=== PATIENT | male | born 1960 | race Caucasian/White ===

== ENCOUNTER 2020-02-09 22:23 | Emergency (ER) | payer BC ==
[2020-02-09] MEDS ORDERED: Sodium Chloride 0.9% 1000 ML 1,000 ML IV STA (22:24)
[2020-02-09] MEDS ORDERED: Ativan 2 MG/1 ML VIAL IV ONE (22:24)
[2020-02-09] MEDS ORDERED: Ativan 2 MG/1 ML VIAL ONE (22:28)
[2020-02-09 22:38] LABS: Absolute Neutrophil Ct (ANC) 5.21 (1.4-6.9); BASOPHIL % 0.4 % (0.0-0.4); Basophil (Absolute #) 0.04 (0-0.4); Eosinophil % 2.3 % (0.00-5.0); Eosinophil (Absolute #) 0.25 (0-0.5); Hemoglobin 15.2 gm/dl (12.5-18.0); Lymphocyte (Absolute #) 3.99 (1.0-4.6); Lymphocytes % 36.3 % (24.0-44.0); Mean Cell Volume 98.3 fl (78-100); Mean Corpuscular Hemoglobin 32.5 pg (26-32); Mean Platelet Volume 10.9 fl (7.5-11.0); Monocyte (Absolute #) 1.51 (0.0-1.3); Monocytes % 13.7 % (0.0-12.0); Neutrophil % 47.3 % (36.0-66.0); Platelet Count 167 K/mm3 (150-450); Red Blood Count 4.68 M/mm3 (4.1-5.6); Red Cell Distribution Width 12.4 % (11.5-14.0)
[2020-02-09 22:43] LABS: VBG CARBOXYHEMOGLOBIN 8.5 % T HGB (0.0-6.9); VBG HCO3- 23.4 meq/L (22-28); VBG HEMOGLOBIN 15.4; VBG O2 SATURATION 89.5 (95-100); VBG POTASSIUM 3.8 (3.5-5.1); VBG pH 7.27 (7.32-7.42)
[2020-02-09 22:50] LABS: ALBUMIN 4.4 g/dL (3.5-5.0); ALKALINE PHOSPHATASE 75 U/L (38-126); ANION GAP 17.5 MEQ/L (5-15); BLOOD UREA NITROGEN 17 mg/dL (9-20); CHLORIDE 102 mmol/L (98-107); Calcium 9.2 mg/dL (8.4-10.2); Carbon Dioxide 24 mmol/L (22-30); Creatinine 1 1.06 mg/dL (0.66-1.25); Glucose 101 mg/dL (74-106); Potassium 4.1 mmol/L (3.5-5.1); SGOT/AST 22 U/L (17-59); SGPT/ALT 16 U/L (0-50); SODIUM 140 mmol/L (137-145); Total Protein 7.7 g/dL (6.3-8.2)
[2020-02-09 22:54] LABS: A-aADO2 27; ABG HEMOGLOBIN 15.4; ABG POTASSIUM 3.8 (3.5-5.1); ARTERIAL BLD GAS O2 SATURATION 89.5 % (95-100); ARTERIAL BLOOD GAS FIO2 21 %; ARTERIAL BLOOD GAS PCO2 51 mmHg (35-45); ARTERIAL BLOOD GAS PO2 59 mmHg (75-100); ARTERIAL BLOOD GAS pH 7.27 (7.35-7.45); HCO3- 23.4 (22-28); HGB O2 SAT 81.3 g/dF (94-100); Lactic Acid 7.4 (0.4-2.0); Methhemoglobin 0.8 % (1.4-1.5); paO2 pAO1 0.69
[2020-02-09 22:55] LABS: ABG SITE NA VBG SAMPLE; ALLEN TEST OK? NO; CARBOXYHEMOGLOBIN 8.5 % THgb (0.0-6.9)
[2020-02-09 23:04] LABS: ACETAMINOPHEN < 10 ug/ml (10-30); ETHYL ALCOHOL < 10 mg/dL (0-10); SALICYLATE < 1.0 mg/dL (2-20)
[2020-02-09] MEDS ORDERED: Sodium Chloride 0.9% 1000 ML 1,000 ML ONE (23:05)
[2020-02-09 23:14] LABS: Appearance SLIGHTLY CLOUDY (CLEAR); Bilirubin NEGATIVE (NEGATIVE); Blood MODERATE Ery/ul (0-5); Glucose NEGATIVE (NEGATIVE); Ketones NEGATIVE (NEGATIVE); Leukocyte Esterase NEGATIVE (NEGATIVE); Mucus SLIGHT /HPF (NEGATIVE); Nitrite NEGATIVE (NEGATIVE); Protein,Urine Dip 100 (Negative); RBC 0-2 /HPF (0-2); Specific Gravity 1.018 (1.005-1.025); Urobilinogen 2 mg/dL (0-1)
[2020-02-09 23:17] LABS: Bacteria NONE SEEN /HPF (NEGATIVE)
[2020-02-09 23:28] LABS: Amphetamine,Urine NEGATIVE (NEGATIVE); Barbiturate,Urine NEGATIVE (NEGATIVE); Benzodiazepine,Urine NEGATIVE (NEGATIVE); Cocaine,Urine NEGATIVE (NEGATIVE); Methadone,Urine NEGATIVE (NEGATIVE); Opiate,Urine NEGATIVE (NEGATIVE); PCP,Urine NEGATIVE (NEGATIVE); THC,Urine NEGATIVE (NEGATIVE)
--- NOTE | 2020-02-09 23:50 | ERPHSYRPT ---
- History of Present Illness Time Seen by Provider: 02/09/20 22:50 Source: patient Exam Limitations: clinical condition Patient Subjective Stated Complaint: per ems, [place] hands and knees. they yelled his name and he fell on the floor and had seizure like acitivity. pt was unresponsive to verbal stimuli at that time. Triage Nursing Assessment: pt awake on arrival to er. not oriented or cooperative at this time. speaks occasionally but does not answer questions. respriations nonlabored. wheezing noted bilat. pupils equal and reactive. no weakness noted in upper or lower ext. redness noted to rt forehead- no open area. abrasion to rt shoulder, with some bruising to rt shoulder. pt remains restless in bed Allergies/Adverse Reactions: venom-wasp [wasp venom] Allergy (Verified 03/09/16 06:09) Home Medications: Budesonide/Formoterol Fumarate [Symbicort 160-4.5 Mcg Inhaler] 2 puff IH BID [History] Ipratropium/Albuterol Sulfate [Combivent Inhaler] 2 puff IH QID 03/06/16 [ History] Hx Influenza Vaccination/Date Given: No Hx Pneumococcal Vaccination/Date Given: No Immunizations Up to Date: No Travel Risk - International Travel If Yes where:: [facility] - Coronavirus Screening Has patient experienced Coronavirus symptoms: No - Past Medical History Pertinent Past Medical History: Yes Respiratory History: COPD Other Medical History: pt unable to give hx at this time - Past Surgical History Other Surgical History: pt unable to give history at this time - Social History Smoking Status: Smoker, status unknown Drug Use: none Patient Lives Alone: No - Nursing Vital Signs Nursing Vital Signs: Initial Vital Signs Pulse Rate 97 H 02/09/20 22:35 Respiratory Rate 24 02/09/20 22:35 Blood Pressure 108/75 02/09/20 22:35 O2 Sat by Pulse Oximetry 89 L 02/09/20 22:35 - Physical Exam SpO2: 96 Ordered Tests: Active Orders 24 hr Category Date Time Status Accucheck STAT Care 02/09/20 22:24 Active Backer Up STAT Care 02/09/20 22:25 Active Catheter-Tucker Boyle STAT Care 02/09/20 22:24 Active EKG-ER Only STAT Care 02/09/20 22:24 Active IV Insertion STAT Care 02/09/20 22:24 Active Pulse Oximetry (ED) STAT Care 02/09/20 22:24 Active Seizure Precautions -SCCHED STAT Care 02/09/20 22:24 Active CHEST 1 VIEW (PORTABLE) Stat Exams 02/09/20 22:56 Taken CHEST WITH CONTRAST [CT] Stat Exams 02/09/20 23:22 Ordered HEAD WITHOUT CONTRAST [CT] Stat Exams 02/09/20 22:38 Taken HIP UNI (2V) INCL PEL IF DONE Stat Exams 02/09/20 23:52 Ordered ACETAMINOPHEN Stat Lab 02/09/20 22:48 Completed ARTERIAL BLOOD GASES Stat Lab 02/09/20 22:33 Completed BLOOD CULTURE Stat Lab 02/09/20 22:48 Received CBC W DIFF Stat Lab 02/09/20 22:34 Completed CMP Stat Lab 02/09/20 22:34 Completed CULTURE,URINE Stat Lab 02/09/20 23:06 Received D-DIMER QUANTITATIVE Stat Lab 02/09/20 22:49 Completed ETHYL ALCOHOL Stat Lab 02/09/20 22:48 Completed Lactic Acid Stat Lab 02/09/20 22:33 Completed MAG [MAGNESIUM] Stat Lab 02/09/20 22:38 Completed SALICYLATE Stat Lab 02/09/20 22:48 Completed TROPONIN Q3H Lab 02/09/20 22:35 Completed TROPONIN Q3H Lab 02/10/20 01:30 Ordered TROPONIN Q3H Lab 02/10/20 04:30 Ordered TROPONIN Q3H Lab 02/10/20 07:30 Ordered TROPONIN Q3H Lab 02/10/20 10:30 Ordered TSH, 3RD Generation Stat Lab 02/09/20 23:07 Completed UA W/RFX UR CULTURE Stat Lab 02/09/20 23:06 Completed Urine Triage Profile Stat Lab 02/09/20 23:06 Completed VBG [VENOUS BLOOD GAS] Stat Lab 02/09/20 22:33 Completed Medication Summary Discontinued Medications Generic Name Dose Route Start Last Admin Trade Name Freq PRN Reason Stop Dose Admin Sodium Chloride 1,000 mls @ 999 mls/hr 02/09/20 22:24 02/09/20 23:06 Sodium Chloride 0.9% 1000 Ml IV 02/09/20 23:24 999 mls/hr .Q1H1M STA Administration Sodium Chloride Confirm 02/09/20 23:05 Sodium Chloride 0.9% 1000 Ml Administered 02/09/20 23:06 Dose 1,000 mls @ ud .ROUTE .STK-MED ONE Lorazepam 1 mg 02/09/20 22:24 02/09/20 22:30 Ativan 2 Mg/1 Ml Vial IV 02/09/20 22:25 1 mg STAT ONE Administration Lorazepam Confirm 02/09/20 22:28 Ativan 2 Mg/1 Ml Vial Administered 02/09/20 22:29 Dose 2 mg .ROUTE .STK-MED ONE Lab/Rad Data: Laboratory Result Diagrams 02/09/20 22:34 02/09/20 22:34 Laboratory Results 02/09/20 02/09/20 02/09/20 Range/Units 23:07 23:06 23:06 WBC (4.0-10.5) K/mm3 RBC (4.1-5.6) M/mm3 Hgb (12.5-18.0) gm/dl Hct (42-50) % MCV (78-100) fl MCH (26-32) pg MCHC (32-36) g/dl RDW (11.5-14.0) % Plt Count (150-450) K/mm3 MPV (7.5-11.0) fl Gran % (36.0-66.0) % Eos # (Auto) (0-0.5) Absolute Lymphs (auto) (1.0-4.6) Absolute Monos (auto) (0.0-1.3) Lymphocytes % (24.0-44.0) % Monocytes % (0.0-12.0) % Eosinophils % (0.00-5.0) % Basophils % (0.0-0.4) % Absolute Granulocytes (1.4-6.9) Basophils # (0-0.4) D-Dimer (215-500) ng/mL Puncture Site pCO2 (35-45) mmHg pO2 (75-100) mmHg pO2/FiO2 Ratio % Base Excess (-2.0-2.0) O2 Saturation (94-100) g/dF ABG pH (7.35-7.45) ABG HCO3 (22-28) ABG O2 Sat (Measured) (95-100) % Pelon Test VBG pH (7.32-7.42) VBG pCO2 at Pat Temp (42-55) mm/Hg VBG pO2 at Pat Temp (25-40) mm/Hg VBG HCO3 (22-28) meq/L VBG O2 Sat (Javier) (95-100) VBG Base Excess (-2.0-2.0) VBG Hemoglobin VBG Carboxyhemoglobin (0.0-6.9) % T HGB A-a Gradient a/A Ratio Hemoglobin Carboxyhemoglobin (0.0-6.9) % THgb Methemoglobin (1.4-1.5) % Potassium (3.5-5.1) POC Potassium (3.5-5.1) Temperature C POC O2 Flow Rate % Sodium (137-145) mmol/L Chloride (98-107) mmol/L Carbon Dioxide (22-30) mmol/L Anion Gap (5-15) MEQ/L BUN (9-20) mg/dL Creatinine (0.66-1.25) mg/dL Estimated GFR ML/MIN Glucose (74-106) mg/dL Lactic Acid (0.4-2.0) Calcium (8.4-10.2) mg/dL Magnesium (1.6-2.3) mg/dL Total Bilirubin (0.2-1.3) mg/dL AST (17-59) U/L ALT (0-50) U/L Alkaline Phosphatase (38-126) U/L Troponin I (0.000-0.034) ng/mL Serum Total Protein (6.3-8.2) g/dL Albumin (3.5-5.0) g/dL TSH 3rd Generation 5.880 H (0.47-4.68) mIU/L Urine Color YELLOW (YELLOW) Urine Appearance SLIGHTLY CLOUDY (CLEAR) Urine pH 5.0 (5-6) Ur Specific [place] 1.018 (1.005-1.025) Urine Protein 100 (Negative) Urine Ketones NEGATIVE (NEGATIVE) Urine Blood MODERATE (0-5) Lenny/ul Urine Nitrite NEGATIVE (NEGATIVE) Urine Bilirubin NEGATIVE (NEGATIVE) Urine Urobilinogen 2 (0-1) mg/dL Ur Leukocyte Esterase NEGATIVE (NEGATIVE) Urine WBC (Auto) 3-5 (0-5) /HPF Urine RBC (Auto) 0-2 (0-2) /HPF U Epithel Cells (Auto) NONE (FEW) /HPF Urine Bacteria (Auto) NONE SEEN (NEGATIVE) /HPF Urine Mucus (Auto) SLIGHT (NEGATIVE) /HPF Urine Culture Reflexed ORDERED SEPARATELY (NO) Urine Glucose NEGATIVE (NEGATIVE) mg/dL Salicylates (2-20) mg/dL Urine Opiates Level NEGATIVE (NEGATIVE) Ur Methadone NEGATIVE (NEGATIVE) Acetaminophen (10-30) ug/ml Urine Barbiturates NEGATIVE (NEGATIVE) Ur Phencyclidine (PCP) NEGATIVE (NEGATIVE) Urine Amphetamine NEGATIVE (NEGATIVE) U Benzodiazepine Level NEGATIVE (NEGATIVE) Urine Cocaine NEGATIVE (NEGATIVE) Urine Marijuana (THC) NEGATIVE (NEGATIVE) Ethyl Alcohol (0-10) mg/dL 02/09/20 02/09/20 02/09/20 Range/Units 22:49 22:48 22:38 WBC (4.0-10.5) K/mm3 RBC (4.1-5.6) M/mm3 Hgb (12.5-18.0) gm/dl Hct (42-50) % MCV (78-100) fl MCH (26-32) pg MCHC (32-36) g/dl RDW (11.5-14.0) % Plt Count (150-450) K/mm3 MPV (7.5-11.0) fl Gran % (36.0-66.0) % Eos # (Auto) (0-0.5) Absolute Lymphs (auto) (1.0-4.6) Absolute Monos (auto) (0.0-1.3) Lymphocytes % (24.0-44.0) % Monocytes % (0.0-12.0) % Eosinophils % (0.00-5.0) % Basophils % (0.0-0.4) % Absolute Granulocytes (1.4-6.9) Basophils # (0-0.4) D-Dimer 1023 H* (215-500) ng/mL Puncture Site pCO2 (35-45) mmHg pO2 (75-100) mmHg pO2/FiO2 Ratio % Base Excess (-2.0-2.0) O2 Saturation (94-100) g/dF ABG pH (7.35-7.45) ABG HCO3 (22-28) ABG O2 Sat (Measured) (95-100) % Pelon Test VBG pH (7.32-7.42) VBG pCO2 at Pat Temp (42-55) mm/Hg VBG pO2 at Pat Temp (25-40) mm/Hg VBG HCO3 (22-28) meq/L VBG O2 Sat (Javier) (95-100) VBG Base Excess (-2.0-2.0) VBG Hemoglobin VBG Carboxyhemoglobin (0.0-6.9) % T HGB A-a Gradient a/A Ratio Hemoglobin Carboxyhemoglobin (0.0-6.9) % THgb Methemoglobin (1.4-1.5) % Potassium (3.5-5.1) POC Potassium (3.5-5.1) Temperature C POC O2 Flow Rate % Sodium (137-145) mmol/L Chloride (98-107) mmol/L Carbon Dioxide (22-30) mmol/L Anion Gap (5-15) MEQ/L BUN (9-20) mg/dL Creatinine (0.66-1.25) mg/dL Estimated GFR ML/MIN Glucose (74-106) mg/dL Lactic Acid (0.4-2.0) Calcium (8.4-10.2) mg/dL Magnesium 2.2 (1.6-2.3) mg/dL Total Bilirubin (0.2-1.3) mg/dL AST (17-59) U/L ALT (0-50) U/L Alkaline Phosphatase (38-126) U/L Troponin I (0.000-0.034) ng/mL Serum Total Protein (6.3-8.2) g/dL Albumin (3.5-5.0) g/dL TSH 3rd Generation (0.47-4.68) mIU/L Urine Color (YELLOW) Urine Appearance (CLEAR) Urine pH (5-6) Ur Specific [place] (1.005-1.025) Urine Protein (Negative) Urine Ketones (NEGATIVE) Urine Blood (0-5) Lenny/ul Urine Nitrite (NEGATIVE) Urine Bilirubin (NEGATIVE) Urine Urobilinogen (0-1) mg/dL Ur Leukocyte Esterase (NEGATIVE) Urine WBC (Auto) (0-5) /HPF Urine RBC (Auto) (0-2) /HPF U Epithel Cells (Auto) (FEW) /HPF Urine Bacteria (Auto) (NEGATIVE) /HPF Urine Mucus (Auto) (NEGATIVE) /HPF Urine Culture Reflexed (NO) Urine Glucose (NEGATIVE) mg/dL Salicylates < 1.0 L (2-20) mg/dL Urine Opiates Level (NEGATIVE) Ur Methadone (NEGATIVE) Acetaminophen < 10 L (10-30) ug/ml Urine Barbiturates (NEGATIVE) Ur Phencyclidine (PCP) (NEGATIVE) Urine Amphetamine (NEGATIVE) U Benzodiazepine Level (NEGATIVE) Urine Cocaine (NEGATIVE) Urine Marijuana (THC) (NEGATIVE) Ethyl Alcohol < 10 (0-10) mg/dL 02/09/20 02/09/20 02/09/20 Range/Units 22:35 22:34 22:34 WBC 11.0 H (4.0-10.5) K/mm3 RBC 4.68 (4.1-5.6) M/mm3 Hgb 15.2 (12.5-18.0) gm/dl Hct 46.0 (42-50) % MCV 98.3 (78-100) fl MCH 32.5 H (26-32) pg MCHC 33.0 (32-36) g/dl RDW 12.4 (11.5-14.0) % Plt Count 167 (150-450) K/mm3 MPV 10.9 (7.5-11.0) fl Gran % 47.3 (36.0-66.0) % Eos # (Auto) 0.25 (0-0.5) Absolute Lymphs (auto) 3.99 (1.0-4.6) Absolute Monos (auto) 1.51 H (0.0-1.3) Lymphocytes % 36.3 (24.0-44.0) % Monocytes % 13.7 H (0.0-12.0) % Eosinophils % 2.3 (0.00-5.0) % Basophils % 0.4 (0.0-0.4) % Absolute Granulocytes 5.21 (1.4-6.9) Basophils # 0.04 (0-0.4) D-Dimer (215-500) ng/mL Puncture Site pCO2 (35-45) mmHg pO2 (75-100) mmHg pO2/FiO2 Ratio % Base Excess (-2.0-2.0) O2 Saturation (94-100) g/dF ABG pH (7.35-7.45) ABG HCO3 (22-28) ABG O2 Sat (Measured) (95-100) % Pelon Test VBG pH (7.32-7.42) VBG pCO2 at Pat Temp (42-55) mm/Hg VBG pO2 at Pat Temp (25-40) mm/Hg VBG HCO3 (22-28) meq/L VBG O2 Sat (Javier) (95-100) VBG Base Excess (-2.0-2.0) VBG Hemoglobin VBG Carboxyhemoglobin (0.0-6.9) % T HGB A-a Gradient a/A Ratio Hemoglobin Carboxyhemoglobin (0.0-6.9) % THgb Methemoglobin (1.4-1.5) % Potassium 4.1 (3.5-5.1) POC Potassium (3.5-5.1) Temperature C POC O2 Flow Rate % Sodium 140 (137-145) mmol/L Chloride 102 (98-107) mmol/L Carbon Dioxide 24 (22-30) mmol/L Anion Gap 17.5 H (5-15) MEQ/L BUN 17 (9-20) mg/dL Creatinine 1.06 (0.66-1.25) mg/dL Estimated GFR > 60.0 ML/MIN Glucose 101 (74-106) mg/dL Lactic Acid (0.4-2.0) Calcium 9.2 (8.4-10.2) mg/dL Magnesium (1.6-2.3) mg/dL Total Bilirubin 0.40 (0.2-1.3) mg/dL AST 22 (17-59) U/L ALT 16 (0-50) U/L Alkaline Phosphatase 75 (38-126) U/L Troponin I < 0.012 (0.000-0.034) ng/mL Serum Total Protein 7.7 (6.3-8.2) g/dL Albumin 4.4 (3.5-5.0) g/dL TSH 3rd Generation (0.47-4.68) mIU/L Urine Color (YELLOW) Urine Appearance (CLEAR) Urine pH (5-6) Ur Specific [place] (1.005-1.025) Urine Protein (Negative) Urine Ketones (NEGATIVE) Urine Blood (0-5) Lenny/ul Urine Nitrite (NEGATIVE) Urine Bilirubin (NEGATIVE) Urine Urobilinogen (0-1) mg/dL Ur Leukocyte Esterase (NEGATIVE) Urine WBC (Auto) (0-5) /HPF Urine RBC (Auto) (0-2) /HPF U Epithel Cells (Auto) (FEW) /HPF Urine Bacteria (Auto) (NEGATIVE) /HPF Urine Mucus (Auto) (NEGATIVE) /HPF Urine Culture Reflexed (NO) Urine Glucose (NEGATIVE) mg/dL Salicylates (2-20) mg/dL Urine Opiates Level (NEGATIVE) Ur Methadone (NEGATIVE) Acetaminophen (10-30) ug/ml Urine Barbiturates (NEGATIVE) Ur Phencyclidine (PCP) (NEGATIVE) Urine Amphetamine (NEGATIVE) U Benzodiazepine Level (NEGATIVE) Urine Cocaine (NEGATIVE) Urine Marijuana (THC) (NEGATIVE) Ethyl Alcohol (0-10) mg/dL 02/09/20 02/09/20 Range/Units 22:33 22:33 WBC (4.0-10.5) K/mm3 RBC (4.1-5.6) M/mm3 Hgb (12.5-18.0) gm/dl Hct (42-50) % MCV (78-100) fl MCH (26-32) pg MCHC (32-36) g/dl RDW (11.5-14.0) % Plt Count (150-450) K/mm3 MPV (7.5-11.0) fl Gran % (36.0-66.0) % Eos # (Auto) (0-0.5) Absolute Lymphs (auto) (1.0-4.6) Absolute Monos (auto) (0.0-1.3) Lymphocytes % (24.0-44.0) % Monocytes % (0.0-12.0) % Eosinophils % (0.00-5.0) % Basophils % (0.0-0.4) % Absolute Granulocytes (1.4-6.9) Basophils # (0-0.4) D-Dimer (215-500) ng/mL Puncture Site NA VBG SAMPLE pCO2 51 H (35-45) mmHg pO2 59 L (75-100) mmHg pO2/FiO2 Ratio 21.0 % Base Excess -4.0 L (-2.0-2.0) O2 Saturation 81.3 L (94-100) g/dF ABG pH 7.27 L (7.35-7.45) ABG HCO3 23.4 (22-28) ABG O2 Sat (Measured) 89.5 L (95-100) % Pelon Test NO VBG pH 7.27 L (7.32-7.42) VBG pCO2 at Pat Temp 51 (42-55) mm/Hg VBG pO2 at Pat Temp 59 H (25-40) mm/Hg VBG HCO3 23.4 (22-28) meq/L VBG O2 Sat (Javier) 89.5 L (95-100) VBG Base Excess -4.0 L (-2.0-2.0) VBG Hemoglobin 15.4 VBG Carboxyhemoglobin 8.5 H* (0.0-6.9) % T HGB A-a Gradient 27 a/A Ratio 0.69 Hemoglobin 15.4 Carboxyhemoglobin 8.5 H* (0.0-6.9) % THgb Methemoglobin 0.8 L (1.4-1.5) % Potassium 3.8 (3.5-5.1) POC Potassium 3.8 (3.5-5.1) Temperature 37.0 C POC O2 Flow Rate 21 % Sodium (137-145) mmol/L Chloride (98-107) mmol/L Carbon Dioxide (22-30) mmol/L Anion Gap (5-15) MEQ/L BUN (9-20) mg/dL Creatinine (0.66-1.25) mg/dL Estimated GFR ML/MIN Glucose (74-106) mg/dL Lactic Acid 7.4 H (0.4-2.0) Calcium (8.4-10.2) mg/dL Magnesium (1.6-2.3) mg/dL Total Bilirubin (0.2-1.3) mg/dL AST (17-59) U/L ALT (0-50) U/L Alkaline Phosphatase (38-126) U/L Troponin I (0.000-0.034) ng/mL Serum Total Protein (6.3-8.2) g/dL Albumin (3.5-5.0) g/dL TSH 3rd Generation (0.47-4.68) mIU/L Urine Color (YELLOW) Urine Appearance (CLEAR) Urine pH (5-6) Ur Specific [place] (1.005-1.025) Urine Protein (Negative) Urine Ketones (NEGATIVE) Urine Blood (0-5) Lenny/ul Urine Nitrite (NEGATIVE) Urine Bilirubin (NEGATIVE) Urine Urobilinogen (0-1) mg/dL Ur Leukocyte Esterase (NEGATIVE) Urine WBC (Auto) (0-5) /HPF Urine RBC (Auto) (0-2) /HPF U Epithel Cells (Auto) (FEW) /HPF Urine Bacteria (Auto) (NEGATIVE) /HPF Urine Mucus (Auto) (NEGATIVE) /HPF Urine Culture Reflexed (NO) Urine Glucose (NEGATIVE) mg/dL Salicylates (2-20) mg/dL Urine Opiates Level (NEGATIVE) Ur Methadone (NEGATIVE) Acetaminophen (10-30) ug/ml Urine Barbiturates (NEGATIVE) Ur Phencyclidine (PCP) (NEGATIVE) Urine Amphetamine (NEGATIVE) U Benzodiazepine Level (NEGATIVE) Urine Cocaine (NEGATIVE) Urine Marijuana (THC) (NEGATIVE) Ethyl Alcohol (0-10) mg/dL - Departure Departure Disposition: Transfer, Release to OR/[facility] Clinical Impression: Brain mass, Mucous retention cyst of maxillary sinus, Seizure Condition: Stable Critical Care Time: Yes Critical Care Time(excluding separately billable procedures): Critical 30-74 mins Referrals: ALON GRIFFITH MD [Primary Care Provider] -
[2020-02-10] MEDS ORDERED: DECADRON 10MG INJ. IV ONE (01:16)
[2020-02-10] MEDS ORDERED: DECADRON 10MG INJ. ONE (01:17)
[2020-02-10] MEDS ORDERED: Keppra 500 MG/5 ML*** 1,000 MG in D5w 100ML Mini Bag 100 ML 100 ML IV ONE (01:20)
[2020-02-10] MEDS ORDERED: Keppra 500 MG/5 ML ONE (01:22)
[2020-02-10] MEDS ORDERED: D5w 100ML Mini Bag 100 ML 100 ML IV ONE (01:23)
[2020-02-10 02:02] VITALS: BP 101/66; PULSE 74; O2SAT 96
--- NOTE | 2020-02-10 09:14 | XRAY ---
Indication: Found unresponsive. Multiple contiguous axial images obtained through the head without contrast. Comparison: None Left frontal lobe demonstrates a 1.5 cm round focus of hyperdensity with mild surrounding edema concerning for mass. No midline shifting. Elsewhere no acute intracranial hemorrhage, abnormal extra-axial fluid collection, or mass effect. Fourth ventricle is midline without hydrocephalus. Alfaro-white matter differentiation preserved. Bony calvarium intact. Inferior right maxillary sinus demonstrates 2.8 cm polyp/retention cyst. Remaining visualized paranasal sinuses and mastoid air cells are clear. Impression: 1. 1.5 cm left frontal lobe mass with surrounding edema as detailed. MRI brain with contrast may yield further information. 2. Right maxillary sinus polyp/retention cyst. Comment: Preliminary interpretation was made by [facility]. No critical discrepancy.
--- NOTE | 2020-02-10 09:18 | XRAY ---
Indication: Found unresponsive. Elevated d-dimer. Multiple contiguous axial images obtained through the chest using 80 cc Isovue 370 contrast and PE protocol. Comparison: CT chest without contrast March 05, 2016. There is good opacification of the pulmonary arteries to include the lobar and segmental branches. No filling defect or pulmonary embolus. Heart is not enlarged. Aorta is normal in course and caliber. No pathologic mediastinal/hilar lymphadenopathy. Lungs again demonstrates diffuse pulmonary emphysema, scattered fibrosis/scarring, and left lower lobe calcified granuloma. Left upper lobe demonstrates new 4.1 x 3.2 x 4.2 cm spiculated mass worrisome for malignancy. No effusion. Bony thorax intact. Limited upper abdomen demonstrates new 3.9 x 3.0 cm right adrenal gland mass worrisome for metastasis. Impression: 1. Negative pulmonary embolus. 2. New left upper lobe spiculated mass as detailed worrisome for malignancy. Also new right adrenal gland mass worrisome for metastasis. 3. Stable pulmonary emphysema, fibrosis/scarring, and evidence old granulomatous disease. Comment: Preliminary interpretation was made by [facility]. No critical discrepancy.
--- NOTE | 2020-02-10 09:21 | XRAY ---
Indication: Right hip pain. Found unresponsive. Comparison: None AP pelvis and 2 view right hip demonstrates minimal lower lumbar degenerative spondylosis, Boyle catheter in situ, and contrasted system due to same day CT PE exam. No other bony, articular, or soft tissue abnormalities.
--- NOTE | 2020-02-10 09:21 | XRAY ---
Indication: Found unresponsive. Comparison: None Portable chest hyperinflated with left apical mass detailed on same-day CT chest exam. Remaining heart, lungs, and bony thorax unremarkable.
== END 2020-02-10 01:50 | disposition short-term general hospital (02) ==
LOC: ED 22:23
DX: G93.9 Disorder of brain, unspecified (principal); J43.1 Panlobular emphysema; R56.9 Unspecified convulsions; Z72.0 Tobacco use; S00.83XA Contusion of other part of head, initial encounter; S00.81XA Abrasion of other part of head, initial encounter; R91.8 Other nonspecific abnormal finding of lung field; C34.90 Malignant neoplasm of unspecified part of unspecified bronchus or lung; C79.72 Secondary malignant neoplasm of left adrenal gland; E03.9 Hypothyroidism, unspecified; W19.XXXA Unspecified fall, initial encounter; Y93.89 Activity, other specified; Y92.89 Other specified places as the place of occurrence of the external cause
CPT/HCPCS: 51702; 70450; 71260; 73502; 80053; 80307; 81001; 82375; 82803; 82805; 82962; 83605; 83735; 84443; 84484; 85025; 85379; 87040; 87086; 93005; 93041; 96360; 96365; 96374; 96375; 99291; G0481; 36000; 36415; 36600; 71045; 94760; 99285; J1100; J1953; J2060; G0480

== ENCOUNTER 2022-09-25 15:28 | Emergency (ER) | payer MEDICARE, OTHER ==
--- NOTE | 2022-09-25 15:34 | ERPHSYRPT ---
- History of Present Illness Time Seen by Provider: 09/25/22 15:34 Historian: patient Exam Limitations: no limitations Physician History: This is a 62-year-old white male patient who is a daily smoker of cigarettes who presents to the emergency department with left anterior, localized chest pain that is described as sharp and nonradiating. Patient had a CT scan of the chest 1 week ago and there is a left lung mass. Patient is to be scheduled for a PET scan in the near future. 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 Patient was at his doctor's office this morning when the pain began. He also has associated cough and wheezing as well as mild shortness of breath. Patient states that he has lost 5 pounds in the last week. He has a loss of appetite. Timing/Duration: today Activities at Onset: none Quality: sharpness Location: other (Left anterior chest) Severity of Pain-Max: mild Severity of Pain-Current: mild Modifying Factors: Improves With: nothing Associated Symptoms: cough Prior Chest Pain/Cardiac Workup: no prior chest pain, no prior cardiac workup Nitro Today/Relief: no nitro taken today Aspirin Treatment Today: no aspirin today Allergies/Adverse Reactions: venom-wasp [wasp venom] Allergy (Verified 09/25/22 15:31) Home Medications: Ipratropium/Albuterol Sulfate [Combivent Inhaler] 2 puff IH QID 03/06/16 [History] Albuterol Sulfate 2.5 mg IH QID 09/25/22 [History] Albuterol Sulfate [Albuterol Sulfate Hfa] 2 puffs IH Q6H PRN 09/25/22 [History] Budesonide/Glycopyr/Formoterol [Breztri Aerosphere Inhaler] 2 puffs IH BID 09/25/22 [History] Gabapentin [Neurontin ] 600 mg PO BID 09/25/22 [History] Levothyroxine Sodium 100 mcg PO DAILY 09/25/22 [History] Nicotine 14 mg [Nicoderm Cq 14 mg] 28 mg TOP DAILY 09/25/22 [History] Hx Influenza Vaccination/Date Given: No Hx Pneumococcal Vaccination/Date Given: No Travel Risk - International Travel Have you traveled outside of the country in past 3 weeks: No - Coronavirus Screening Are you exhibiting any of the following symptoms?: Yes Symptoms: Cough: New Onset, Shortness of Breath Close contact with a COVID-19 positive Pt in past 14-21 Days: No - Review of Systems Constitutional: No Symptoms Eyes: No Symptoms Ears, Nose, & Throat: No Symptoms Respiratory: Cough, Dyspnea Cardiac: Chest Pain Abdominal/Gastrointestinal: No Symptoms (Left anterior chestsharp) Genitourinary Symptoms: No Symptoms Musculoskeletal: No Symptoms Skin: No Symptoms Neurological: No Symptoms Psychological: No Symptoms Endocrine: No Symptoms Hematologic/Lymphatic: No Symptoms Immunological/Allergic: No Symptoms All Other Systems: Reviewed and Negative - Past Medical History Pertinent Past Medical History: Yes Respiratory History: COPD Other Medical History: pt unable to give hx at this time - Past Surgical History Past Surgical History: Yes Other Surgical History: pt unable to give history at this time - Social History Smoking Status: Smoker, status unknown Drug Use: none Patient Lives Alone: No - Nursing Vital Signs Nursing Vital Signs: Initial Vital Signs Temperature 98.3 F 09/25/22 15:29 Pulse Rate 74 09/25/22 15:29 Respiratory Rate 24 09/25/22 15:29 Blood Pressure 105/76 09/25/22 15:29 O2 Sat by Pulse Oximetry 96 09/25/22 15:29 Pain Scale Pain Intensity 0 - Physical Exam General Appearance: no apparent distress, alert, anxiety, thin Eye Exam: PERRL/EOMI, eyes nml inspection Ears, Nose, Throat Exam: normal ENT inspection, moist mucous membranes Neck Exam: normal inspection, non-tender, supple, full range of motion Respiratory Exam: normal breath sounds, chest tenderness, lungs clear, No respiratory distress, No airway intact Cardiovascular Exam: regular rate/rhythm, normal heart sounds, normal peripheral pulses Gastrointestinal/Abdomen Exam: soft, normal bowel sounds, No tenderness Rectal Exam: not done Back Exam: normal inspection, normal range of motion, No CVA tenderness, No vertebral tenderness Extremity Exam: normal inspection, normal range of motion, pelvis stable Neurologic Exam: alert, oriented x 3, cooperative, sports medicine physician II-XII nml as tested, normal mood/affect, nml cerebellar function, nml station & gait, sensation nml - Course Nursing assessment & vital signs reviewed: Yes EKG Interpreted by Me: RATE (72), Sinus Rhythm, Left [place] Deviation, NORMAL INTERVALS, NORMAL QRS, NORMAL ST-T, Other (No acute ischemic changes on today's twelve-lead EKG.) Ordered Tests: Active Orders 24 hr Category Date Time Status Pegger Dobby Looms STAT Care 09/25/22 16:11 Active EKG-ER Only STAT Care 09/25/22 16:11 Active IV Insertion STAT Care 09/25/22 16:11 Active Pulse Oximetry (ED) STAT Care 09/25/22 16:11 Active CHEST 1 VIEW (PORTABLE) Stat Exams 09/25/22 16:11 Completed CBC W DIFF Stat Lab 09/25/22 16:10 Completed CMP Stat Lab 09/25/22 16:10 Completed TROPONIN Q4H Lab 09/25/22 16:10 Completed TROPONIN Q4H Lab 09/25/22 20:15 Ordered TROPONIN Q4H Lab 09/26/22 00:15 Ordered Medication Summary Discontinued Medications Generic Name Dose Route Start Last Admin Trade Name Freq PRN Reason Stop Dose Admin Aspirin 324 mg 09/25/22 16:11 09/25/22 16:22 Aspirin 81 Mg Tab.Chew PO 09/25/22 16:12 324 mg STAT ONE Administration Aspirin Confirm 09/25/22 16:23 Aspirin 81 Mg Tab.Chew Administered 09/25/22 16:24 Dose 324 mg .ROUTE .[employer]Kids Movie-MED ONE Lab/Rad Data: Laboratory Result Diagrams 09/25/22 16:10 09/25/22 16:10 Laboratory Results 09/25/22 09/25/22 09/25/22 Range/Units 16:10 16:10 16:10 WBC 7.1 (4.0-10.5) x10^3/uL RBC 3.77 L (4.1-5.6) x10^6/uL Hgb 12.3 L (12.5-18.0) g/dL Hct 37.1 L (42-50) % MCV 98.4 (78-100) fL MCH 32.6 H (26-32) pg MCHC 33.2 (32-36) g/dL RDW 11.7 (11.5-14.0) % Plt Count 154 (150-450) x10^3/uL MPV 10.3 (7.5-11.0) fL Gran % 71.4 H (36.0-66.0) % Immature Gran % (Auto) 0.1 (0.00-0.4) % Nucleat RBC Rel Count 0.0 (0.00-0.1) % Eos # (Auto) 0.16 (0-0.5) x10^3/uL Immature Gran # (Auto) 0.01 (0.00-0.03) x10^3u/L Absolute Lymphs (auto) 1.12 (1.0-4.6) x10^3/uL Absolute Monos (auto) 0.69 (0.0-1.3) x10^3/uL Absolute Nucleated RBC 0.00 (0.00-0.01) x10^3u/L Lymphocytes % 15.8 L (24.0-44.0) % Monocytes % 9.8 (0.0-12.0) % Eosinophils % 2.3 (0.00-5.0) % Basophils % 0.6 (0.0-0.4) % Absolute Granulocytes 5.05 (1.4-6.9) x10^3/uL Basophils # 0.04 (0-0.4) x10^3/uL Sodium 133 L (137-145) mmol/L Potassium 3.9 (3.5-5.1) mmol/L Chloride 97 L (98-107) mmol/L Carbon Dioxide 35 H (22-30) mmol/L Anion Gap 5.8 (5-15) MEQ/L BUN 12 (9-20) mg/dL Creatinine 0.59 L (0.66-1.25) mg/dL Estimated GFR > 60.0 ML/MIN Glucose 110 H (74-106) mg/dL Calcium 9.3 (8.4-10.2) mg/dL Total Bilirubin 0.50 (0.2-1.3) mg/dL AST 20 (17-59) U/L ALT 19 (0-50) U/L Alkaline Phosphatase 75 (38-126) U/L Troponin I < 0.012 (0.000-0.034) ng/mL Serum Total Protein 6.9 (6.3-8.2) g/dL Albumin 4.1 (3.5-5.0) g/dL - Progress Progress: improved, re-examined Air Movement: good Progress Note: 09/25/22 18:00 Chest x-ray shows nonacute chest with chronic features. Blood Culture(s) Obtained: No Antibiotics given: No Counseled pt/family regarding: lab results, diagnosis, need for follow-up, rad results - Departure Departure Disposition: Home Clinical Impression: Non-cardiac chest pain Condition: Stable Critical Care Time: No Referrals: ALON GRIFFITH MD [Primary Care Provider] - Follow up/PCP as directed Additional Instructions: Drink plenty of fluids. Stop smoking. Follow-up with your prescribing provider and your crystal machining coordinator for further evaluation and management.
[2022-09-25] MEDS ORDERED: BABY ASPIRIN 81 MG CHEW PO ONE (16:11)
[2022-09-25] MEDS ORDERED: BABY ASPIRIN 81 MG CHEW ONE (16:23)
[2022-09-25 16:42] LABS: Absolute Neutrophil Ct (ANC) 5.05 x10^3/uL (1.4-6.9); Basophil (Absolute #) 0.04 x10^3/uL (0-0.4); Eosinophil % 2.3 % (0.00-5.0); Eosinophil (Absolute #) 0.16 x10^3/uL (0-0.5); Hematocrit 37.1 % (42-50); Hemoglobin 12.3 g/dL (12.5-18.0); Lymphocyte (Absolute #) 1.12 x10^3/uL (1.0-4.6); Lymphocytes % 15.8 % (24.0-44.0); Mean Cell Volume 98.4 fL (78-100); Mean Corpuscular Hemoglobin 32.6 pg (26-32); Mean Corpuscular Hgb Concent. 33.2 g/dL (32-36); Mean Platelet Volume 10.3 fL (7.5-11.0); Monocyte (Absolute #) 0.69 x10^3/uL (0.0-1.3); Monocytes % 9.8 % (0.0-12.0); Neutrophil % 71.4 % (36.0-66.0); Platelet Count 154 x10^3/uL (150-450); Red Blood Count 3.77 x10^6/uL (4.1-5.6); Red Cell Distribution Width 11.7 % (11.5-14.0); White Blood Count 7.1 x10^3/uL (4.0-10.5)
[2022-09-25 17:00] LABS: ALBUMIN 4.1 g/dL (3.5-5.0); ALKALINE PHOSPHATASE 75 U/L (38-126); ANION GAP 5.8 MEQ/L (5-15); BLOOD UREA NITROGEN 12 mg/dL (9-20); CHLORIDE 97 mmol/L (98-107); Calcium 9.3 mg/dL (8.4-10.2); Carbon Dioxide 35 mmol/L (22-30); Creatinine 1 0.59 mg/dL (0.66-1.25); EST GLOMERULAR FILTRATION RATE > 60.0 ML/MIN; Glucose 110 mg/dL (74-106); Potassium 3.9 mmol/L (3.5-5.1); SGOT/AST 20 U/L (17-59); SGPT/ALT 19 U/L (0-50); SODIUM 133 mmol/L (137-145); Total Protein 6.9 g/dL (6.3-8.2)
--- NOTE | 2022-09-25 17:06 | XRAY ---
Indication: Left chest pain. Comparison: February 09, 2020 Portable chest again demonstrates COPD. No focal infiltrate, consolidation, or large effusion. Heart not enlarged with new right Port-A-Cath. Bony thorax intact with osteopenia and mild degenerative changes. Impression: Nonacute chest with chronic features.
[2022-09-25 18:12] VITALS: BP 92/62
[2022-09-25 18:53] VITALS: PULSE 66; O2SAT 92
== END 2022-09-25 19:06 | disposition home or self-care (01) ==
LOC: ED 15:28
DX: R07.89 Other chest pain (principal); R05.9 Cough, unspecified; R06.2 Wheezing; R06.02 Shortness of breath; Z79.899 Other long term (current) drug therapy; Z72.0 Tobacco use
CPT/HCPCS: 36000; 36415; 71045; 80053; 84484; 85025; 93005; 93041; 94760; 99284; J1642; A9270-GY

== ENCOUNTER 2022-11-26 16:42 | Observation (INO) | payer MEDICARE ==
[2022-11-26] MEDS ORDERED: DUONEB 0.5-3 MG/3 ml Neb IH ONE ×3 (16:43→21:18)
[2022-11-26] MEDS ORDERED: Sodium Chloride 0.9% 1000 ML 1,000 ML IV STA (16:44)
[2022-11-26] MEDS ORDERED: solu-MEDROL 125 MG, Sterile H2O 10 ml 2 ML IV ONE ×2 (16:44)
[2022-11-26] MEDS ORDERED: PROVENTIL 2.5 MG/3 ML NEB IH ONE (16:44)
[2022-11-26] MEDS ORDERED: solu-MEDROL ONE (17:16)
[2022-11-26] MEDS ORDERED: Sodium Chloride 0.9% 1000 ML 1,000 ML ONE (17:16)
[2022-11-26] MEDS ORDERED: Sterile H2O 10 ml IJ ONE (17:16)
[2022-11-26 17:19] LABS: BASOPHIL % 0.1 % (0.0-0.4); Basophil (Absolute #) 0.01 x10^3/uL (0-0.4); Eosinophil % 0.8 % (0.00-5.0); Eosinophil (Absolute #) 0.06 x10^3/uL (0-0.5); Hematocrit 35.8 % (42-50); Hemoglobin 11.9 g/dL (12.5-18.0); IMMATURE GRAN # 0.01 x10^3u/L (0.00-0.03); IMMATURE GRAN % 0.1 % (0.00-0.4); Lymphocyte (Absolute #) 1.46 x10^3/uL (1.0-4.6); Lymphocytes % 19.5 % (24.0-44.0); Mean Cell Volume 96.8 fL (78-100); Mean Corpuscular Hemoglobin 32.2 pg (26-32); Mean Corpuscular Hgb Concent. 33.2 g/dL (32-36); Mean Platelet Volume 9.8 fL (7.5-11.0); Monocyte (Absolute #) 0.74 x10^3/uL (0.0-1.3); Monocytes % 9.9 % (0.0-12.0); Neutrophil % 69.6 % (36.0-66.0); Platelet Count 142 x10^3/uL (150-450); Red Cell Distribution Width 12.5 % (11.5-14.0); White Blood Count 7.5 x10^3/uL (4.0-10.5)
[2022-11-26 17:44] LABS: ALBUMIN 3.8 g/dL (3.5-5.0); ALKALINE PHOSPHATASE 67 U/L (38-126); ANION GAP 7.5 MEQ/L (5-15); BLOOD UREA NITROGEN 9 mg/dL (9-20); CHLORIDE 98 mmol/L (98-107); Calcium 8.5 mg/dL (8.4-10.2); Carbon Dioxide 33 mmol/L (22-30); Creatinine 1 0.52 mg/dL (0.66-1.25); EST GLOMERULAR FILTRATION RATE > 60.0 ML/MIN; Glucose 93 mg/dL (74-106); MAGNESIUM 1.7 mg/dL (1.6-2.3); Potassium 3.6 mmol/L (3.5-5.1); SGOT/AST 24 U/L (17-59); SGPT/ALT 26 U/L (0-50); SODIUM 134 mmol/L (137-145); Total Protein 6.7 g/dL (6.3-8.2)
[2022-11-26 17:48] LABS: INFLUENZA A NEGATIVE (NEGATIVE); INFLUENZA B NEGATIVE (NEGATIVE); RESPIRATORY SYNCTIAL VIRUS NEGATIVE (NEGATIVE)
[2022-11-26 17:54] LABS: INR 0.99 (0.8-3.0); PROTIME 10.8 SECONDS (9.4-12.5)
[2022-11-26 17:55] LABS: SARS-CoV-2 Xpert Express POSITIVE (NEGATIVE)
[2022-11-26 18:00] LABS: D-DIMER QUANTITATIVE 1.24 mg/L (0.0-0.50)
--- NOTE | 2022-11-26 18:06 | ERPHSYRPT ---
- History of Present Illness Source: patient Exam Limitations: no limitations Patient Subjective Stated Complaint: C/O SOB that started this am. Patient normally wears oxygen at home at 2L per n/c but indicates that he turned it up to 6L today. Triage Nursing Assessment: Patient brought back to ER in W/C. He is SOB with labored breathing. 02 sats 82% on room air initially; 02 @ 4L per N/C applied and 02 sats increased to 96%. Patient's nose purple in color upon arrival. Wheezing noted throughout with diminished bases. He is alert and oriented. 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 Timing/Duration: today Activities at Onset: none Severity of Dyspnea-Max: severe Severity of Dyspnea-Current: moderate Possible Cause: occasional episodes Modifying Factors: Improves With: coughing, oxygen Associated Symptoms: cough, chest pain/discomfort, wheezing Hx Tetanus, Diphtheria Vaccination/Date Given: No Hx Influenza Vaccination/Date Given: No Hx Pneumococcal Vaccination/Date Given: No Immunizations Up to Date: No - History of Present Illness Time Seen by Provider: 11/26/22 16:50 Physician History: Patient is a 62-year-old white male who has longstanding COPD and lung cancer who presents with an sudden increase in oxygen requirement. Normally his home O2 is at 2 L today he had to turn it up to 6 L. He also complains of chest pain. His dyspnea became much worse this morning. (JUJU ODONNELL) Allergies/Adverse Reactions: venom-wasp [wasp venom] Allergy (Verified 11/26/22 16:43) Home Medications: Ipratropium/Albuterol Sulfate [Combivent Inhaler] 2 puff IH DAILY 03/06/16 [Hi story] Albuterol Sulfate 2.5 mg IH QID 09/25/22 [History] Albuterol Sulfate [Albuterol Sulfate Hfa] 2 puffs IH Q6H PRN 09/25/22 [History] Budesonide/Glycopyr/Formoterol [Breztri Aerosphere Inhaler] 2 puffs IH BID 09/25/22 [History] Gabapentin [Neurontin ] 600 mg PO BID 09/25/22 [History] Levothyroxine Sodium 100 mcg PO DAILY 09/25/22 [History] Multivit-Mins/Iron/Folic/Lycop [Centrum Men's Tablet] 1 tab PO DAILY 11/26/22 [History] predniSONE [Prednisone] 15 mg PO DAILY 11/26/22 [History] B12/Methyltetrahydrofolate/B6 [Methyl A78-Zgqksv Folate-P5p] 1 each PO DAILY 11/27/22 [History] Nicotine 21 mg [Nicoderm CQ 21 MG] 21 mg TOP DAILY 11/27/22 [History] Travel Risk - International Travel Have you traveled outside of the country in past 3 weeks: No - Coronavirus Screening Are you exhibiting any of the following symptoms?: Yes Symptoms: Shortness of Breath Close contact with a COVID-19 positive Pt in past 14-21 Days: No - Vaccine Status Have you recieved a Covid-19 vaccination: No - Review of Systems Constitutional: Weakness, No Fever, No Chills Eyes: No Symptoms Ears, Nose, & Throat: No Symptoms Respiratory: Cough, Dyspnea on Exertion (GONZALEZ), Wheezing, No Dyspnea Cardiac: No Chest Pain, No Edema, No Syncope Abdominal/Gastrointestinal: No Abdominal Pain, No Nausea, No Vomiting, No Diarrhea Genitourinary Symptoms: No Dysuria Musculoskeletal: No Back Pain, No Neck Pain Skin: No Rash Neurological: No Dizziness, No Focal Weakness, No Sensory Changes Psychological: No Symptoms Endocrine: No Symptoms All Other Systems: Reviewed and Negative - Past Medical History Pertinent Past Medical History: Yes Neurological History: No Pertinent History ENT History: No Pertinent History Cardiac History: No Pertinent History Respiratory History: COPD, Emphysema, Lung Cancer Endocrine Medical History: Hypothyroidism Musculoskeletal History: No Pertinent History GI Medical History: No Pertinent History History: No Pertinent History Psycho-Social History: No Pertinent History Male Reproductive Disorders: No Pertinent History Other Medical History: BRAIN TUMOR - Past Surgical History Past Surgical History: Yes Neuro Surgical History: Other Cardiac: No Pertinent History Respiratory: No Pertinent History Gastrointestinal: No Pertinent History Genitourinary: No Pertinent History Musculoskeletal: No Pertinent History Male Surgical History: No Pertinent History Other Surgical History: PORT PLACEMENT; BRAIN SURGERY FOR BRAIN TUMOR - Social History Smoking Status: Current some day smoker How long have you smoked: 40+ YEARS Exposure to second hand smoke: No Drug Use: none Patient Lives Alone: No - Physical Exam General Appearance: moderate distress Eye Exam: PERRL/EOMI Neck Exam: normal inspection, supple Respiratory Exam: wheezing Cardiovascular/Chest Exam: normal heart sounds Abdominal/Gastrointestinal Exam: soft, normal bowel sounds, tenderness Extremity Exam: non-tender, normal range of motion Neurologic Exam: alert, oriented x 3, cooperative SpO2 Interpretation: hypoxic, O2 applied SpO2: 100 O2 Delivery: Nasal Cannula - Nursing Vital Signs Nursing Vital Signs: Initial Vital Signs Temperature 97.9 F 11/26/22 16:46 Pulse Rate 87 11/26/22 16:46 Respiratory Rate 30 H 11/26/22 16:46 Blood Pressure 134/89 11/26/22 16:46 O2 Sat by Pulse Oximetry 82 L 11/26/22 16:46 Pain Scale Pain Intensity 0 - Course Nursing assessment & vital signs reviewed: Yes EKG Interpreted by Me: RATE (75), Sinus Rhythm, NORMAL AXIS, Non-specific ST Changes, Other (Low voltage in extremity leads and precordial leads.) - Radiology Exams Chest X-ray Interpretation: Interpreted by me (Chronic changes) Ordered Tests: Active Orders 24 hr Category Date Time Status TROPONIN Q4H Lab 11/26/22 23:15 Completed UA W/RFX UR CULTURE Stat Lab 11/26/22 21:00 Completed Medication Summary Generic Name Dose Route Start Last Admin Trade Name Freq PRN Reason Stop Dose Admin Acetaminophen 650 mg 11/27/22 00:46 Acetaminophen 650 Mg Supp.Rect TX 12/27/22 00:45 Q4H PRN PRN PAIN AND/OR FEVER Albuterol Sulfate 4 puff 11/27/22 09:54 Albuterol Common Canister Inhaler IH 12/27/22 09:53 Q4H PRN PRN SHORTNESS OF BREATH/WHEEZING Albuterol/Ipratropium 3 ml 11/27/22 13:00 11/27/22 13:15 Ipratropium/Albuterol Sulfate 3 Ml Ampul.Neb IH 12/27/22 12:59 3 ml Q6HRT EN Administration Alprazolam 0.5 mg 11/27/22 18:51 Alprazolam 0.5 Mg Tablet PO 12/27/22 18:50 Q6H PRN PRN ANXIETY Apixaban 5 mg 11/27/22 10:00 11/27/22 11:11 Apixaban 2.5 Mg Tablet PO 12/27/22 09:59 5 mg BID EN Administration Dexamethasone Sodium Phosphate 4 mg 11/27/22 12:00 11/27/22 18:19 Dexamethasone Sod Phosphate 4 Mg/Ml Ml IV 12/27/22 11:59 4 mg Q6HT EN Administration Docusate Sodium 100 mg 11/27/22 00:46 Docusate Sodium 100 Mg Capsule PO 12/27/22 00:45 BIDPRN PRN CONSTIPATION Famotidine 20 mg 11/27/22 10:00 11/27/22 09:13 Famotidine 20 Mg Tablet PO 12/27/22 09:59 20 mg BID EN Administration Heparin Sodium (Beef Lung) 500 units 11/27/22 04:38 11/27/22 05:08 Heparin Lock Flush Pf 500 Units/5 Ml Syringe PORT FLUSH 12/27/22 04:37 500 units PRN PRN Administration IV PORT FLUSH Remdesivir 100 mg/ Sodium 100 mls @ 100 mls/hr 11/27/22 23:00 Chloride IV 11/30/22 23:59 Q24H EN Levofloxacin 500 mg 11/27/22 10:00 11/27/22 11:11 Levofloxacin 500 Mg Tablet PO 12/27/22 09:59 500 mg DAILY EN Administration Magnesium Hydroxide 30 ml 11/27/22 00:46 Magnesium Hydroxide 30 Ml Udcup PO 12/27/22 00:45 HS PRN PRN CONSTIPATION Ondansetron HCl 4 mg 11/27/22 00:46 Ondansetron Hcl 4 Mg/2 Ml Vial IV 12/27/22 00:45 Q6H PRN PRN NAUSEA/VOMITING Pantoprazole Sodium 40 mg 11/27/22 10:00 11/27/22 09:13 Protonix (Pantoprazole) 40 Mg Tablet PO 12/27/22 09:59 40 mg DAILY [facility] Administration Sodium Chloride 10 ml 11/27/22 00:46 Normal Saline 10 Ml Flush IV 12/27/22 00:45 PRN PRN flush Discontinued Medications Generic Name Dose Route Start Last Admin Trade Name Freq PRN Reason Stop Dose Admin Albuterol Sulfate 4 puff 11/26/22 21:18 11/26/22 21:38 Albuterol Common Canister Inhaler 11/26/22 21:19 4 puff ONCE ONE Administration Albuterol Sulfate 4 puff 11/27/22 01:00 11/27/22 07:15 Albuterol Common Canister Inhaler 12/27/22 00:59 4 puff Q6HRT EN Administration Albuterol/Ipratropium Confirm 11/26/22 16:43 Ipratropium/Albuterol Sulfate 3 Ml Ampul.Neb Administered 11/26/22 16:44 Dose 3 ml IH .STK-MED ONE Albuterol/Ipratropium 3 ml 11/26/22 17:13 11/26/22 17:15 Ipratropium/Albuterol Sulfate 3 Ml Ampul.Neb IH 11/26/22 17:14 3 ml STAT ONE Administration Albuterol/Ipratropium 3 ml 11/26/22 21:18 11/26/22 22:07 Ipratropium/Albuterol Sulfate 3 Ml Ampul.Neb 11/26/22 21:19 Not Given STAT ONE Albuterol/Ipratropium 3 ml 11/27/22 01:00 Ipratropium/Albuterol Sulfate 3 Ml Ampul.Neb 12/27/22 00:59 Q6HRT [facility] Methylprednisolone Sodium 0 mg 11/26/22 16:44 11/26/22 17:21 Succinate 125 mg/ Sterile IV 11/26/22 16:45 125 mg Water 2 ml STAT ONE Administration Dexamethasone Sodium Phosphate 6 mg 11/27/22 10:00 Dexamethasone Sod Phosphate 10 Mg/Ml IV 12/27/22 09:59 DAILY [facility] Enoxaparin Sodium 40 mg 11/27/22 10:00 Enoxaparin Sodium 40 Mg/0.4 Ml Syringe SQ 12/27/22 09:59 DAILY [facility] Sodium Chloride 1,000 mls @ 999 mls/hr 11/26/22 16:44 11/26/22 18:33 Sodium Chloride 0.9% 1000 Ml IV 11/26/22 17:44 Infused .Q1H1M STA Infusion Sodium Chloride Confirm 11/26/22 17:16 Sodium Chloride 0.9% 1000 Ml Administered 11/26/22 17:17 Dose 1,000 mls @ ud .ROUTE .STK-MED ONE Magnesium Sulfate/Dextrose 100 mls @ 100 mls/hr 11/26/22 22:15 11/27/22 04:27 Magnesium 1 Gm / 100 Ml D5w IV 11/27/22 00:14 100 mls/hr Q1H EN Administration Remdesivir 200 mg/ Sodium 250 mls @ 125 mls/hr 11/27/22 00:52 11/27/22 01:54 Chloride IV 11/27/22 02:51 125 mls/hr ONCE ONE Administration Sodium Chloride Confirm 11/27/22 01:36 Sodium Chloride 0.9% 250 Ml Administered 11/27/22 01:37 Dose 250 mls @ ud IV .STK-MED ONE Methylprednisolone Sodium Succinate Confirm 11/26/22 17:16 Methylprednis Sod Succ 125 Mg/2 Ml Vial Administered 11/26/22 17:17 Dose 125 mg .ROUTE .STK-MED ONE Potassium Chloride 40 meq 11/26/22 22:05 11/27/22 00:57 Potassium Chloride Tab 10 Meq Tab PO 11/26/22 22:06 40 meq STAT ONE Administration Potassium Chloride Confirm 11/27/22 00:53 Potassium Chloride Tab 10 Meq Tab Administered 11/27/22 00:54 Dose 40 meq PO .STK-MED ONE Remdesivir Confirm 11/27/22 01:37 Remdesivir 100 Mg Vial Administered 11/27/22 01:38 Dose 200 mg IV .STK-MED ONE Sterile Water Confirm 11/26/22 17:16 Water For Injection,Sterile 10 Ml Vial Administered 11/26/22 17:17 Dose 10 ml IJ .STK-MED ONE Lab/Rad Data: Laboratory Result Diagrams 11/26/22 16:48 11/26/22 16:48 Laboratory Results 11/26/22 11/26/22 11/26/22 Range/Units 21:00 16:48 16:48 WBC (4.0-10.5) x10^3/uL RBC (4.1-5.6) x10^6/uL Hgb (12.5-18.0) g/dL Hct (42-50) % MCV (78-100) fL MCH (26-32) pg MCHC (32-36) g/dL RDW (11.5-14.0) % Plt Count (150-450) x10^3/uL MPV (7.5-11.0) fL Gran % (36.0-66.0) % Immature Gran % (Auto) (0.00-0.4) % Nucleat RBC Rel Count (0.00-0.1) % Eos # (Auto) (0-0.5) x10^3/uL Immature Gran # (Auto) (0.00-0.03) x10^3u/L Absolute Lymphs (auto) (1.0-4.6) x10^3/uL Absolute Monos (auto) (0.0-1.3) x10^3/uL Absolute Nucleated RBC (0.00-0.01) x10^3u/L Lymphocytes % (24.0-44.0) % Monocytes % (0.0-12.0) % Eosinophils % (0.00-5.0) % Basophils % (0.0-0.4) % Absolute Granulocytes (1.4-6.9) x10^3/uL Basophils # (0-0.4) x10^3/uL PT (9.4-12.5) SECONDS INR (0.8-3.0) D-Dimer (0.0-0.50) mg/L Sodium (137-145) mmol/L Potassium (3.5-5.1) mmol/L Chloride (98-107) mmol/L Carbon Dioxide (22-30) mmol/L Anion Gap (5-15) MEQ/L BUN (9-20) mg/dL Creatinine (0.66-1.25) mg/dL Estimated GFR ML/MIN Glucose (74-106) mg/dL Lactic Acid (0.4-2.0) Calcium (8.4-10.2) mg/dL Magnesium (1.6-2.3) mg/dL Total Bilirubin (0.2-1.3) mg/dL AST (17-59) U/L ALT (0-50) U/L Alkaline Phosphatase (38-126) U/L Troponin I (0.000-0.034) ng/mL NT-Pro-B Natriuret Pep 23.1 (<300) pg/mL Serum Total Protein (6.3-8.2) g/dL Albumin (3.5-5.0) g/dL Urine Color Yellow (Yellow) Urine Appearance Clear (Clear) Urine pH 6.0 (4.6-8.0) Ur Specific Burns 1.025 (1.005-1.030) Urine Protein Negative (Negative) Urine Glucose (UA) Negative (Negative) mg/dL Urine Ketones Negative (Negative) Urine Blood Negative (Negative) Urine Nitrite Negative (Negative) Urine Bilirubin Negative (Negative) Urine Urobilinogen 0.2 (0.2) mg/dL Ur Leukocyte Esterase Negative (Negative) U Hyaline Cast (Auto) NONE SEEN (0-2) /LPF Urine Microscopic RBC 0-2 (0-5) /HPF Urine Microscopic WBC 0-2 (0-5) /HPF Ur Epithelial Cells None Seen (None Seen) /HPF Urine Bacteria None Seen (None Seen) /HPF Urine Culture Reflexed NO (NO) Influenza Type A Ag NEGATIVE (NEGATIVE) Influenza Type B Ag NEGATIVE (NEGATIVE) RSV (PCR) NEGATIVE (NEGATIVE) SARS-CoV-2 (PCR) POSITIVE A (NEGATIVE) 11/26/22 11/26/22 11/26/22 Range/Units 16:48 16:48 16:48 WBC (4.0-10.5) x10^3/uL RBC (4.1-5.6) x10^6/uL Hgb (12.5-18.0) g/dL Hct (42-50) % MCV (78-100) fL MCH (26-32) pg MCHC (32-36) g/dL RDW (11.5-14.0) % Plt Count (150-450) x10^3/uL MPV (7.5-11.0) fL Gran % (36.0-66.0) % Immature Gran % (Auto) (0.00-0.4) % Nucleat RBC Rel Count (0.00-0.1) % Eos # (Auto) (0-0.5) x10^3/uL Immature Gran # (Auto) (0.00-0.03) x10^3u/L Absolute Lymphs (auto) (1.0-4.6) x10^3/uL Absolute Monos (auto) (0.0-1.3) x10^3/uL Absolute Nucleated RBC (0.00-0.01) x10^3u/L Lymphocytes % (24.0-44.0) % Monocytes % (0.0-12.0) % Eosinophils % (0.00-5.0) % Basophils % (0.0-0.4) % Absolute Granulocytes (1.4-6.9) x10^3/uL Basophils # (0-0.4) x10^3/uL PT 10.8 (9.4-12.5) SECONDS INR 0.99 (0.8-3.0) D-Dimer 1.24 H* (0.0-0.50) mg/L Sodium 134 L (137-145) mmol/L Potassium 3.6 (3.5-5.1) mmol/L Chloride 98 (98-107) mmol/L Carbon Dioxide 33 H (22-30) mmol/L Anion Gap 7.5 (5-15) MEQ/L BUN 9 (9-20) mg/dL Creatinine 0.52 L (0.66-1.25) mg/dL Estimated GFR > 60.0 ML/MIN Glucose 93 (74-106) mg/dL Lactic Acid (0.4-2.0) Calcium 8.5 (8.4-10.2) mg/dL Magnesium 1.7 (1.6-2.3) mg/dL Total Bilirubin 0.40 (0.2-1.3) mg/dL AST 24 (17-59) U/L ALT 26 (0-50) U/L Alkaline Phosphatase 67 (38-126) U/L Troponin I < 0.012 (0.000-0.034) ng/mL NT-Pro-B Natriuret Pep (<300) pg/mL Serum Total Protein 6.7 (6.3-8.2) g/dL Albumin 3.8 (3.5-5.0) g/dL Urine Color (Yellow) Urine Appearance (Clear) Urine pH (4.6-8.0) Ur Specific Burns (1.005-1.030) Urine Protein (Negative) Urine Glucose (UA) (Negative) mg/dL Urine Ketones (Negative) Urine Blood (Negative) Urine Nitrite (Negative) Urine Bilirubin (Negative) Urine Urobilinogen (0.2) mg/dL Ur Leukocyte Esterase (Negative) U Hyaline Cast (Auto) (0-2) /LPF Urine Microscopic RBC (0-5) /HPF Urine Microscopic WBC (0-5) /HPF Ur Epithelial Cells (None Seen) /HPF Urine Bacteria (None Seen) /HPF Urine Culture Reflexed (NO) Influenza Type A Ag (NEGATIVE) Influenza Type B Ag (NEGATIVE) RSV (PCR) (NEGATIVE) SARS-CoV-2 (PCR) (NEGATIVE) 11/26/22 11/26/22 Range/Units 16:48 16:44 WBC 7.5 (4.0-10.5) x10^3/uL RBC 3.70 L (4.1-5.6) x10^6/uL Hgb 11.9 L (12.5-18.0) g/dL Hct 35.8 L (42-50) % MCV 96.8 (78-100) fL MCH 32.2 H (26-32) pg MCHC 33.2 (32-36) g/dL RDW 12.5 (11.5-14.0) % Plt Count 142 L (150-450) x10^3/uL MPV 9.8 (7.5-11.0) fL Gran % 69.6 H (36.0-66.0) % Immature Gran % (Auto) 0.1 (0.00-0.4) % Nucleat RBC Rel Count 0.0 (0.00-0.1) % Eos # (Auto) 0.06 (0-0.5) x10^3/uL Immature Gran # (Auto) 0.01 (0.00-0.03) x10^3u/L Absolute Lymphs (auto) 1.46 (1.0-4.6) x10^3/uL Absolute Monos (auto) 0.74 (0.0-1.3) x10^3/uL Absolute Nucleated RBC 0.00 (0.00-0.01) x10^3u/L Lymphocytes % 19.5 L (24.0-44.0) % Monocytes % 9.9 (0.0-12.0) % Eosinophils % 0.8 (0.00-5.0) % Basophils % 0.1 (0.0-0.4) % Absolute Granulocytes 5.20 (1.4-6.9) x10^3/uL Basophils # 0.01 (0-0.4) x10^3/uL PT (9.4-12.5) SECONDS INR (0.8-3.0) D-Dimer (0.0-0.50) mg/L Sodium (137-145) mmol/L Potassium (3.5-5.1) mmol/L Chloride (98-107) mmol/L Carbon Dioxide (22-30) mmol/L Anion Gap (5-15) MEQ/L BUN (9-20) mg/dL Creatinine (0.66-1.25) mg/dL Estimated GFR ML/MIN Glucose (74-106) mg/dL Lactic Acid 0.9 (0.4-2.0) Calcium (8.4-10.2) mg/dL Magnesium (1.6-2.3) mg/dL Total Bilirubin (0.2-1.3) mg/dL AST (17-59) U/L ALT (0-50) U/L Alkaline Phosphatase (38-126) U/L Troponin I (0.000-0.034) ng/mL NT-Pro-B Natriuret Pep (<300) pg/mL Serum Total Protein (6.3-8.2) g/dL Albumin (3.5-5.0) g/dL Urine Color (Yellow) Urine Appearance (Clear) Urine pH (4.6-8.0) Ur Specific Burns (1.005-1.030) Urine Protein (Negative) Urine Glucose (UA) (Negative) mg/dL Urine Ketones (Negative) Urine Blood (Negative) Urine Nitrite (Negative) Urine Bilirubin (Negative) Urine Urobilinogen (0.2) mg/dL Ur Leukocyte Esterase (Negative) U Hyaline Cast (Auto) (0-2) /LPF Urine Microscopic RBC (0-5) /HPF Urine Microscopic WBC (0-5) /HPF Ur Epithelial Cells (None Seen) /HPF Urine Bacteria (None Seen) /HPF Urine Culture Reflexed (NO) Influenza Type A Ag (NEGATIVE) Influenza Type B Ag (NEGATIVE) RSV (PCR) (NEGATIVE) SARS-CoV-2 (PCR) (NEGATIVE) - Progress Progress: improved Air Movement: fair Blood Culture(s) Obtained: No Antibiotics given: No - Progress Progress Note: Patient accepted in inpatient admission for COVID pna and COPD exacerbation by the telehospitalist service. (WILEY QUEZADA) Medical Desision Making - Diagnostic Testing Radiological Interpretation: Interpreted by me - Risk of complications The pt has a high risk of morbidity or mortality based on: Drug therapy requiring intensive monitoring for toxicity - Departure Departure Disposition: Observation Critical Care Time: No - Departure Clinical Impression: COVID, COPD exacerbation Condition: Fair
[2022-11-26 21:09] LABS: Appearance Clear (Clear); Bacteria None Seen /HPF (None Seen); Bilirubin Negative (Negative); Blood Negative (Negative); Epithelial Cells None Seen /HPF (None Seen); Glucose, Urine Negative (Negative); Hyaline Casts NONE SEEN /LPF (0-2); Ketones Negative (Negative); Leukocyte Esterase Negative (Negative); Nitrite Negative (Negative); Protein,Urine Dip Negative (Negative); RBC 0-2 /HPF (0-5); Specific Gravity 1.025 (1.005-1.030); Urobilinogen 0.2 mg/dL (0.2); WBC 0-2 /HPF (0-5)
[2022-11-26 21:15] LABS: ADD URINE CULTURE? NO (NO)
[2022-11-26] MEDS ORDERED: VENTOLIN COMMON CANISTER IH ONE (21:18)
[2022-11-26] MEDS ORDERED: Klor Con PO ONE (22:05)
[2022-11-27] MEDS ORDERED: Docusate Sodium 100 MG PO PRN (00:46)
[2022-11-27] MEDS ORDERED: Sodium Chloride 0.9% 10 ML FLUSH Syringe IV PRN (00:46)
[2022-11-27] MEDS ORDERED: Zofran 4 MG/2 ML VIAL IV PRN (00:46)
[2022-11-27] MEDS ORDERED: MILK OF MAGNESIA 30 ML PO PRN (00:46)
[2022-11-27] MEDS ORDERED: FEVERALL 650 MG PR PRN (00:46)
[2022-11-27] MEDS ORDERED: REMDESIVIR 200 MG in Sodium Chloride 0.9% 250 ML 250 ML IV ONE (00:52)
[2022-11-27] MEDS ORDERED: Klor Con PO ONE (00:53)
[2022-11-27] MEDS: Magnesium 1 Gm / 100 Ml D5W*** 100 ML IV SCH ×2 (00:57→04:27)
[2022-11-27] MEDS ORDERED: DUONEB 0.5-3 MG/3 ml Neb IH SCH (01:00)
--- NOTE | 2022-11-27 01:01 | PCM.HP ---
History of Present Illness - Chief Complaint Chief Complaint: COVID Date: 11/26/22 (Admission pre-midnight) History of Present Illness: This is a patient with known COPD on home oxygen (2lpm at rest but does not wear O2 with ambulation) who presents with dyspnea for approximately 2-3 days. The patient denies chest pain or chest but has had wheezing. Today he turned his oxygen flow rate up to 6LPM. He has had a cough but it has not been productive. No dyspnea. In the ED the patient was noted to have wheezing and possible cyanosis of the nose. Workup was negative for PE or infiltrate on chest CTA, but Covid antigen is positive. The patient has not received a Covid vaccine. - Review of Systems Constitutional: Lethargy Eyes: No Symptoms Ears, Nose, & Throat: No Symptoms Respiratory: Cough, Short Of Breath, Wheezing Cardiac: No Symptoms Abdominal/Gastrointestinal: No Symptoms Genitourinary Symptoms: No Symptoms Musculoskeletal: No Symptoms Skin: No Symptoms Neurological: No Symptoms Psychological: No Symptoms Endocrine: No Symptoms Hematologic/Lymphatic: No Symptoms Immunological/Allergic: No Symptoms All Other Systems: Reviewed and Negative Medications & Allergies Home Medications: Home Medication List Ipratropium/Albuterol Sulfate [Combivent Inhaler] 2 puff IH QID 03/06/16 [History Confirmed 11/26/22] Albuterol Sulfate 2.5 mg IH QID 09/25/22 [History Confirmed 11/26/22] Albuterol Sulfate [Albuterol Sulfate Hfa] 2 puffs IH Q6H PRN 09/25/22 [History Confirmed 11/26/22] Budesonide/Glycopyr/Formoterol [Breztri Aerosphere Inhaler] 2 puffs IH BID 09/25/22 [History Confirmed 11/26/22] Gabapentin [Neurontin ] 600 mg PO BID 09/25/22 [History Confirmed 11/26/22] Levothyroxine Sodium 100 mcg PO DAILY 09/25/22 [History Confirmed 11/26/22] Multivit-Mins/Iron/Folic/Lycop [Centrum Men's Tablet] 1 tab PO DAILY 11/26/22 [History Confirmed 11/26/22] predniSONE [Prednisone] 15 mg PO DAILY 11/26/22 [History Confirmed 11/26/22] B12/Methyltetrahydrofolate/B6 [Methyl D73-Bsoelf Folate-P5p] 1 each PO DAILY 11/27/22 [History Confirmed 11/27/22] Nicotine 21 mg [Nicoderm CQ 21 MG] 21 mg TOP DAILY 11/27/22 [History Confirmed 11/27/22] Allergies/Adverse Reactions: Allergies Allergy/AdvReac Type Severity Reaction Status Date / Time venom-wasp [wasp venom] Allergy Verified 11/26/22 16:43 - Past Medical History Past Medical History: Yes Neurological History: No Pertinent History ENT History: No Pertinent History Cardiac History: No Pertinent History Respiratory History: COPD, Emphysema, Lung Cancer Endocrine Medical History: Hypothyroidism Musculoskelatal History: No Pertinent History GI Medical History: No Pertinent History History: No Pertinent History Pyscho-Social History: No Pertinent History Male Reproductive Disorders: No Pertinent History Comment: BRAIN TUMOR - Past Surgical History Past Surgical History: Yes Neuro Surgical History: Other Cardiac History: No Pertinent History Respiratory Surgery: No Pertinent History GI Surgical History: No Pertinent History Genitourinary Surgical Hx: No Pertinent History Musculskeletal Surgical Hx: No Pertinent History Male Surgical History: No Pertinent History Other Surgical History: PORT PLACEMENT; BRAIN SURGERY FOR BRAIN TUMOR - Social History Smoking Status: Current some day smoker How long have you smoked: 40+ YEARS Exposure to second hand smoke: No Alcohol: None Drug Use: none - Physical Exam Vital Signs: Vital Signs - 24 hr Temp Pulse Resp BP Pulse Ox 11/26/22 23:20 94 L 11/26/22 22:26 80 23 114/80 96 11/26/22 21:38 86 20 98 11/26/22 21:00 80 16 99 11/26/22 18:52 100 11/26/22 17:30 97.8 F 83 24 105/84 100 11/26/22 17:17 92 H 24 96 11/26/22 16:46 97.9 F 87 30 H 134/89 82 L General Appearance: no apparent distress Neurologic Exam: alert, oriented x 3, cooperative, 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 tested, normal mood/affect, nml cerebellar function Eye Exam: PERRL/EOMI, eyes nml inspection Ears, Nose, Throat Exam: normal ENT inspection Neck Exam: normal inspection, non-tender, supple, full range of motion Respiratory Exam: airway intact, diminished breath sounds, wheezing Cardiovascular Exam: regular rate/rhythm, normal peripheral pulses Gastrointestinal/Abdomen Exam: soft, normal bowel sounds Rectal Exam: deferred Extremity Exam: normal inspection, normal range of motion Skin Exam: normal color, warm Results - Labs Lab/Micro Results: Lab Results-Last 24 Hours 11/26/22 11/26/22 11/26/22 Range/Units 16:44 16:48 16:48 WBC 7.5 (4.0-10.5) x10^3/uL RBC 3.70 L (4.1-5.6) x10^6/uL Hgb 11.9 L (12.5-18.0) g/dL Hct 35.8 L (42-50) % MCV 96.8 (78-100) fL MCH 32.2 H (26-32) pg MCHC 33.2 (32-36) g/dL RDW 12.5 (11.5-14.0) % Plt Count 142 L (150-450) x10^3/uL MPV 9.8 (7.5-11.0) fL Gran % 69.6 H (36.0-66.0) % Immature Gran % (Auto) 0.1 (0.00-0.4) % Nucleat RBC Rel Count 0.0 (0.00-0.1) % Eos # (Auto) 0.06 (0-0.5) x10^3/uL Immature Gran # (Auto) 0.01 (0.00-0.03) x10^3u/L Absolute Lymphs (auto) 1.46 (1.0-4.6) x10^3/uL Absolute Monos (auto) 0.74 (0.0-1.3) x10^3/uL Absolute Nucleated RBC 0.00 (0.00-0.01) x10^3u/L Lymphocytes % 19.5 L (24.0-44.0) % Monocytes % 9.9 (0.0-12.0) % Eosinophils % 0.8 (0.00-5.0) % Basophils % 0.1 (0.0-0.4) % Absolute Granulocytes 5.20 (1.4-6.9) x10^3/uL Basophils # 0.01 (0-0.4) x10^3/uL PT (9.4-12.5) SECONDS INR (0.8-3.0) D-Dimer (0.0-0.50) mg/L Sodium 134 L (137-145) mmol/L Potassium 3.6 (3.5-5.1) mmol/L Chloride 98 (98-107) mmol/L Carbon Dioxide 33 H (22-30) mmol/L Anion Gap 7.5 (5-15) MEQ/L BUN 9 (9-20) mg/dL Creatinine 0.52 L (0.66-1.25) mg/dL Estimated GFR > 60.0 ML/MIN Glucose 93 (74-106) mg/dL Lactic Acid 0.9 (0.4-2.0) Calcium 8.5 (8.4-10.2) mg/dL Magnesium 1.7 (1.6-2.3) mg/dL Total Bilirubin 0.40 (0.2-1.3) mg/dL AST 24 (17-59) U/L ALT 26 (0-50) U/L Alkaline Phosphatase 67 (38-126) U/L Troponin I (0.000-0.034) ng/mL NT-Pro-B Natriuret Pep (<300) pg/mL Serum Total Protein 6.7 (6.3-8.2) g/dL Albumin 3.8 (3.5-5.0) g/dL Urine Color (Yellow) Urine Appearance (Clear) Urine pH (4.6-8.0) Ur Specific Dawson (1.005-1.030) Urine Protein (Negative) Urine Glucose (UA) (Negative) mg/dL Urine Ketones (Negative) Urine Blood (Negative) Urine Nitrite (Negative) Urine Bilirubin (Negative) Urine Urobilinogen (0.2) mg/dL Ur Leukocyte Esterase (Negative) U Hyaline Cast (Auto) (0-2) /LPF Urine Microscopic RBC (0-5) /HPF Urine Microscopic WBC (0-5) /HPF Ur Epithelial Cells (None Seen) /HPF Urine Bacteria (None Seen) /HPF Urine Culture Reflexed (NO) Influenza Type A Ag (NEGATIVE) Influenza Type B Ag (NEGATIVE) RSV (PCR) (NEGATIVE) SARS-CoV-2 (PCR) (NEGATIVE) 11/26/22 11/26/22 11/26/22 Range/Units 16:48 16:48 16:48 WBC (4.0-10.5) x10^3/uL RBC (4.1-5.6) x10^6/uL Hgb (12.5-18.0) g/dL Hct (42-50) % MCV (78-100) fL MCH (26-32) pg MCHC (32-36) g/dL RDW (11.5-14.0) % Plt Count (150-450) x10^3/uL MPV (7.5-11.0) fL Gran % (36.0-66.0) % Immature Gran % (Auto) (0.00-0.4) % Nucleat RBC Rel Count (0.00-0.1) % Eos # (Auto) (0-0.5) x10^3/uL Immature Gran # (Auto) (0.00-0.03) x10^3u/L Absolute Lymphs (auto) (1.0-4.6) x10^3/uL Absolute Monos (auto) (0.0-1.3) x10^3/uL Absolute Nucleated RBC (0.00-0.01) x10^3u/L Lymphocytes % (24.0-44.0) % Monocytes % (0.0-12.0) % Eosinophils % (0.00-5.0) % Basophils % (0.0-0.4) % Absolute Granulocytes (1.4-6.9) x10^3/uL Basophils # (0-0.4) x10^3/uL PT 10.8 (9.4-12.5) SECONDS INR 0.99 (0.8-3.0) D-Dimer 1.24 H* (0.0-0.50) mg/L Sodium (137-145) mmol/L Potassium (3.5-5.1) mmol/L Chloride (98-107) mmol/L Carbon Dioxide (22-30) mmol/L Anion Gap (5-15) MEQ/L BUN (9-20) mg/dL Creatinine (0.66-1.25) mg/dL Estimated GFR ML/MIN Glucose (74-106) mg/dL Lactic Acid (0.4-2.0) Calcium (8.4-10.2) mg/dL Magnesium (1.6-2.3) mg/dL Total Bilirubin (0.2-1.3) mg/dL AST (17-59) U/L ALT (0-50) U/L Alkaline Phosphatase (38-126) U/L Troponin I < 0.012 (0.000-0.034) ng/mL NT-Pro-B Natriuret Pep 23.1 (<300) pg/mL Serum Total Protein (6.3-8.2) g/dL Albumin (3.5-5.0) g/dL Urine Color (Yellow) Urine Appearance (Clear) Urine pH (4.6-8.0) Ur Specific Dawson (1.005-1.030) Urine Protein (Negative) Urine Glucose (UA) (Negative) mg/dL Urine Ketones (Negative) Urine Blood (Negative) Urine Nitrite (Negative) Urine Bilirubin (Negative) Urine Urobilinogen (0.2) mg/dL Ur Leukocyte Esterase (Negative) U Hyaline Cast (Auto) (0-2) /LPF Urine Microscopic RBC (0-5) /HPF Urine Microscopic WBC (0-5) /HPF Ur Epithelial Cells (None Seen) /HPF Urine Bacteria (None Seen) /HPF Urine Culture Reflexed (NO) Influenza Type A Ag (NEGATIVE) Influenza Type B Ag (NEGATIVE) RSV (PCR) (NEGATIVE) SARS-CoV-2 (PCR) (NEGATIVE) 11/26/22 11/26/22 11/26/22 Range/Units 16:48 21:00 23:15 WBC (4.0-10.5) x10^3/uL RBC (4.1-5.6) x10^6/uL Hgb (12.5-18.0) g/dL Hct (42-50) % MCV (78-100) fL MCH (26-32) pg MCHC (32-36) g/dL RDW (11.5-14.0) % Plt Count (150-450) x10^3/uL MPV (7.5-11.0) fL Gran % (36.0-66.0) % Immature Gran % (Auto) (0.00-0.4) % Nucleat RBC Rel Count (0.00-0.1) % Eos # (Auto) (0-0.5) x10^3/uL Immature Gran # (Auto) (0.00-0.03) x10^3u/L Absolute Lymphs (auto) (1.0-4.6) x10^3/uL Absolute Monos (auto) (0.0-1.3) x10^3/uL Absolute Nucleated RBC (0.00-0.01) x10^3u/L Lymphocytes % (24.0-44.0) % Monocytes % (0.0-12.0) % Eosinophils % (0.00-5.0) % Basophils % (0.0-0.4) % Absolute Granulocytes (1.4-6.9) x10^3/uL Basophils # (0-0.4) x10^3/uL PT (9.4-12.5) SECONDS INR (0.8-3.0) D-Dimer (0.0-0.50) mg/L Sodium (137-145) mmol/L Potassium (3.5-5.1) mmol/L Chloride (98-107) mmol/L Carbon Dioxide (22-30) mmol/L Anion Gap (5-15) MEQ/L BUN (9-20) mg/dL Creatinine (0.66-1.25) mg/dL Estimated GFR ML/MIN Glucose (74-106) mg/dL Lactic Acid (0.4-2.0) Calcium (8.4-10.2) mg/dL Magnesium (1.6-2.3) mg/dL Total Bilirubin (0.2-1.3) mg/dL AST (17-59) U/L ALT (0-50) U/L Alkaline Phosphatase (38-126) U/L Troponin I 0.018 (0.000-0.034) ng/mL NT-Pro-B Natriuret Pep (<300) pg/mL Serum Total Protein (6.3-8.2) g/dL Albumin (3.5-5.0) g/dL Urine Color Yellow (Yellow) Urine Appearance Clear (Clear) Urine pH 6.0 (4.6-8.0) Ur Specific Dawson 1.025 (1.005-1.030) Urine Protein Negative (Negative) Urine Glucose (UA) Negative (Negative) mg/dL Urine Ketones Negative (Negative) Urine Blood Negative (Negative) Urine Nitrite Negative (Negative) Urine Bilirubin Negative (Negative) Urine Urobilinogen 0.2 (0.2) mg/dL Ur Leukocyte Esterase Negative (Negative) U Hyaline Cast (Auto) NONE SEEN (0-2) /LPF Urine Microscopic RBC 0-2 (0-5) /HPF Urine Microscopic WBC 0-2 (0-5) /HPF Ur Epithelial Cells None Seen (None Seen) /HPF Urine Bacteria None Seen (None Seen) /HPF Urine Culture Reflexed NO (NO) Influenza Type A Ag NEGATIVE (NEGATIVE) Influenza Type B Ag NEGATIVE (NEGATIVE) RSV (PCR) NEGATIVE (NEGATIVE) SARS-CoV-2 (PCR) POSITIVE A (NEGATIVE) - Radiology Impressions Radiology Exams & Impressions: Radiology Procedures Category Date Time Status CHEST 1 VIEW (PORTABLE) Stat Exams 11/26/22 16:45 Taken CHEST WITH CONTRAST [CT] Stat Exams 11/26/22 18:03 Taken - Other Procedures and Tests Respiratory Therapy 11/26/22 17:16 Respiratory Therapy Assessment DAILY 11/26/22 21:18 Respiratory MDI ONCE 11/26/22 23:20 Oxygen Nasal Cannula 4 lpm 11/27/22 00:46 Respiratory Therapy Consult ROUTINE Assessment/Plan (1) COVID-19 Current Visit: Yes Status: Acute Assessment & Plan: With 2-3 days of symptom onset and acute on chronic hypoxic respiratory failure, in an unvaccinated patient and known COPD, the patient is moderate to high risk. Will place on IV Remdesivir and IV Dexamethasone. Wean O2 as tolerated. No infiltrate on CTA Code(s): U07.1 - COVID-19 (2) Acute and chronic respiratory failure with hypoxia Current Visit: Yes Status: Acute Assessment & Plan: Wean O2 as tolerated. Full code Code(s): J96.21 - ACUTE AND CHRONIC RESPIRATORY FAILURE WITH HYPOXIA (3) Wheezing Current Visit: Yes Status: Acute Assessment & Plan: Nebulizers. Treatment as outlined Code(s): R06.2 - WHEEZING (4) COVID Current Visit: Yes Status: Acute Assessment & Plan: Treatment as outlined. The entirety of this encounter was performed via telemedicine. The patient gave verbal consent for this telemedicine encounter. Code(s): U07.1 - COVID-19 Telemedicine Encounter - Telemedicine Encounter Telemedicine Encounter: The entirety of this encounter was performed via Telemedicine"
[2022-11-27] MEDS: VENTOLIN COMMON CANISTER IH SCH ×2 (01:15→07:15)
[2022-11-27] MEDS ORDERED: Sodium Chloride 0.9% 250 ML 250 ML IV ONE (01:36)
[2022-11-27] MEDS ORDERED: REMDESIVIR IV ONE (01:37)
[2022-11-27] MEDS: FLUTICASONE-SALMETEROL 250-50 IH SCH ×2 (07:15→19:00)
--- NOTE | 2022-11-27 08:57 | XRAY ---
Indication: Elevated d-dimer. Positive Covid 19. History lung cancer. Multiple contiguous images obtained through the chest using 100 cc Isovue 370 contrast and PE protocol. Comparison: February 09, 2020 Good opacification of the pulmonary arteries to include the lobar and segmental branches. No pulmonary embolus. Heart not enlarged with new right Port-A-Cath. Aorta remains normal in course and caliber. No pathologic mediastinal/hilar lymphadenopathy. Lungs demonstrates interval resection of previous left upper lobe mass. Remaining lungs again demonstrates diffuse pulmonary emphysema, scattered fibrosis/scarring, and small posterior left lower lobe calcified granuloma. No new pulmonary mass, infiltrate, effusion, or pneumothorax. Bony thorax intact. Limited upper abdomen demonstrates new right adrenal macrocalcifications presumed sequela treatment of previous adrenal mass. Impression: 1. Continued negative for pulmonary embolus. No acute cardiopulmonary abnormalities. 2. Again pulmonary emphysema, scattered fibrosis/scarring, and old granulomatous disease.
[2022-11-27] MEDS: Pepcid 20 MG PO SCH ×2 (09:13→21:54)
[2022-11-27] MEDS: Protonix 40MG Tablet PO SCH (09:13)
--- NOTE | 2022-11-27 09:50 | PCM.NOTE ---
Date and Time: 11/27/22946 Subjective Assessment: patient is short of breath, not coughing much the last few days. no known fever, hx copd and lung cancer. he doesn't have much appetite Objective Exam General Appearance: mild distress Respiratory Exam: diminished breath sounds, accessory muscle use, prolonged expirations, rhonchi, wheezing Cardiovascular Exam: regular rate/rhythm, normal heart sounds Gastrointestinal/Abdomen Exam: soft, No tenderness, No mass Extremity Exam: normal inspection, normal range of motion OBJECTIVE DATA Vital Signs: Vital Signs - 24 hr Temp Pulse Resp BP Pulse Ox 11/27/22 08:00 15 11/27/22 07:16 73 15 97 11/27/22 07:00 97.6 F 80 17 116/94 97 11/27/22 06:00 16 11/27/22 04:00 18 11/27/22 02:00 16 11/27/22 01:15 81 18 94 L 11/27/22 00:46 98.1 F 66 18 100 11/27/22 00:00 19 11/26/22 23:20 94 L 11/26/22 23:00 98.0 F 79 19 98/48 98 11/26/22 22:26 80 23 114/80 96 11/26/22 21:38 86 20 98 11/26/22 21:00 80 16 99 11/26/22 18:52 100 11/26/22 17:30 97.8 F 83 24 105/84 100 11/26/22 17:17 92 H 24 96 11/26/22 16:46 97.9 F 87 30 H 134/89 82 L Pain Assessment - Last Documented Pain Intensity 0 Intake and Output: Intake & Output 11/24/22 11/25/22 11/26/22 11/27/22 11:59 11:59 11:59 11:59 Intake Total 360 Balance 360 Weight 63.1 kg Lab Results: Lab Results-Last 24 Hours 11/26/22 11/26/22 11/26/22 Range/Units 16:44 16:48 16:48 WBC 7.5 (4.0-10.5) x10^3/uL RBC 3.70 L (4.1-5.6) x10^6/uL Hgb 11.9 L (12.5-18.0) g/dL Hct 35.8 L (42-50) % MCV 96.8 (78-100) fL MCH 32.2 H (26-32) pg MCHC 33.2 (32-36) g/dL RDW 12.5 (11.5-14.0) % Plt Count 142 L (150-450) x10^3/uL MPV 9.8 (7.5-11.0) fL Gran % 69.6 H (36.0-66.0) % Immature Gran % (Auto) 0.1 (0.00-0.4) % Nucleat RBC Rel Count 0.0 (0.00-0.1) % Eos # (Auto) 0.06 (0-0.5) x10^3/uL Immature Gran # (Auto) 0.01 (0.00-0.03) x10^3u/L Absolute Lymphs (auto) 1.46 (1.0-4.6) x10^3/uL Absolute Monos (auto) 0.74 (0.0-1.3) x10^3/uL Absolute Nucleated RBC 0.00 (0.00-0.01) x10^3u/L Lymphocytes % 19.5 L (24.0-44.0) % Monocytes % 9.9 (0.0-12.0) % Eosinophils % 0.8 (0.00-5.0) % Basophils % 0.1 (0.0-0.4) % Absolute Granulocytes 5.20 (1.4-6.9) x10^3/uL Basophils # 0.01 (0-0.4) x10^3/uL PT (9.4-12.5) SECONDS INR (0.8-3.0) D-Dimer (0.0-0.50) mg/L Sodium 134 L (137-145) mmol/L Potassium 3.6 (3.5-5.1) mmol/L Chloride 98 (98-107) mmol/L Carbon Dioxide 33 H (22-30) mmol/L Anion Gap 7.5 (5-15) MEQ/L BUN 9 (9-20) mg/dL Creatinine 0.52 L (0.66-1.25) mg/dL Estimated GFR > 60.0 ML/MIN Glucose 93 (74-106) mg/dL Lactic Acid 0.9 (0.4-2.0) Calcium 8.5 (8.4-10.2) mg/dL Magnesium 1.7 (1.6-2.3) mg/dL Total Bilirubin 0.40 (0.2-1.3) mg/dL AST 24 (17-59) U/L ALT 26 (0-50) U/L Alkaline Phosphatase 67 (38-126) U/L Troponin I (0.000-0.034) ng/mL NT-Pro-B Natriuret Pep (<300) pg/mL Serum Total Protein 6.7 (6.3-8.2) g/dL Albumin 3.8 (3.5-5.0) g/dL Urine Color (Yellow) Urine Appearance (Clear) Urine pH (4.6-8.0) Ur Specific Barre (1.005-1.030) Urine Protein (Negative) Urine Glucose (UA) (Negative) mg/dL Urine Ketones (Negative) Urine Blood (Negative) Urine Nitrite (Negative) Urine Bilirubin (Negative) Urine Urobilinogen (0.2) mg/dL Ur Leukocyte Esterase (Negative) U Hyaline Cast (Auto) (0-2) /LPF Urine Microscopic RBC (0-5) /HPF Urine Microscopic WBC (0-5) /HPF Ur Epithelial Cells (None Seen) /HPF Urine Bacteria (None Seen) /HPF Urine Culture Reflexed (NO) Influenza Type A Ag (NEGATIVE) Influenza Type B Ag (NEGATIVE) RSV (PCR) (NEGATIVE) SARS-CoV-2 (PCR) (NEGATIVE) 11/26/22 11/26/22 11/26/22 Range/Units 16:48 16:48 16:48 WBC (4.0-10.5) x10^3/uL RBC (4.1-5.6) x10^6/uL Hgb (12.5-18.0) g/dL Hct (42-50) % MCV (78-100) fL MCH (26-32) pg MCHC (32-36) g/dL RDW (11.5-14.0) % Plt Count (150-450) x10^3/uL MPV (7.5-11.0) fL Gran % (36.0-66.0) % Immature Gran % (Auto) (0.00-0.4) % Nucleat RBC Rel Count (0.00-0.1) % Eos # (Auto) (0-0.5) x10^3/uL Immature Gran # (Auto) (0.00-0.03) x10^3u/L Absolute Lymphs (auto) (1.0-4.6) x10^3/uL Absolute Monos (auto) (0.0-1.3) x10^3/uL Absolute Nucleated RBC (0.00-0.01) x10^3u/L Lymphocytes % (24.0-44.0) % Monocytes % (0.0-12.0) % Eosinophils % (0.00-5.0) % Basophils % (0.0-0.4) % Absolute Granulocytes (1.4-6.9) x10^3/uL Basophils # (0-0.4) x10^3/uL PT 10.8 (9.4-12.5) SECONDS INR 0.99 (0.8-3.0) D-Dimer 1.24 H* (0.0-0.50) mg/L Sodium (137-145) mmol/L Potassium (3.5-5.1) mmol/L Chloride (98-107) mmol/L Carbon Dioxide (22-30) mmol/L Anion Gap (5-15) MEQ/L BUN (9-20) mg/dL Creatinine (0.66-1.25) mg/dL Estimated GFR ML/MIN Glucose (74-106) mg/dL Lactic Acid (0.4-2.0) Calcium (8.4-10.2) mg/dL Magnesium (1.6-2.3) mg/dL Total Bilirubin (0.2-1.3) mg/dL AST (17-59) U/L ALT (0-50) U/L Alkaline Phosphatase (38-126) U/L Troponin I < 0.012 (0.000-0.034) ng/mL NT-Pro-B Natriuret Pep 23.1 (<300) pg/mL Serum Total Protein (6.3-8.2) g/dL Albumin (3.5-5.0) g/dL Urine Color (Yellow) Urine Appearance (Clear) Urine pH (4.6-8.0) Ur Specific [place] (1.005-1.030) Urine Protein (Negative) Urine Glucose (UA) (Negative) mg/dL Urine Ketones (Negative) Urine Blood (Negative) Urine Nitrite (Negative) Urine Bilirubin (Negative) Urine Urobilinogen (0.2) mg/dL Ur Leukocyte Esterase (Negative) U Hyaline Cast (Auto) (0-2) /LPF Urine Microscopic RBC (0-5) /HPF Urine Microscopic WBC (0-5) /HPF Ur Epithelial Cells (None Seen) /HPF Urine Bacteria (None Seen) /HPF Urine Culture Reflexed (NO) Influenza Type A Ag (NEGATIVE) Influenza Type B Ag (NEGATIVE) RSV (PCR) (NEGATIVE) SARS-CoV-2 (PCR) (NEGATIVE) 11/26/22 11/26/22 11/26/22 Range/Units 16:48 21:00 23:15 WBC (4.0-10.5) x10^3/uL RBC (4.1-5.6) x10^6/uL Hgb (12.5-18.0) g/dL Hct (42-50) % MCV (78-100) fL MCH (26-32) pg MCHC (32-36) g/dL RDW (11.5-14.0) % Plt Count (150-450) x10^3/uL MPV (7.5-11.0) fL Gran % (36.0-66.0) % Immature Gran % (Auto) (0.00-0.4) % Nucleat RBC Rel Count (0.00-0.1) % Eos # (Auto) (0-0.5) x10^3/uL Immature Gran # (Auto) (0.00-0.03) x10^3u/L Absolute Lymphs (auto) (1.0-4.6) x10^3/uL Absolute Monos (auto) (0.0-1.3) x10^3/uL Absolute Nucleated RBC (0.00-0.01) x10^3u/L Lymphocytes % (24.0-44.0) % Monocytes % (0.0-12.0) % Eosinophils % (0.00-5.0) % Basophils % (0.0-0.4) % Absolute Granulocytes (1.4-6.9) x10^3/uL Basophils # (0-0.4) x10^3/uL PT (9.4-12.5) SECONDS INR (0.8-3.0) D-Dimer (0.0-0.50) mg/L Sodium (137-145) mmol/L Potassium (3.5-5.1) mmol/L Chloride (98-107) mmol/L Carbon Dioxide (22-30) mmol/L Anion Gap (5-15) MEQ/L BUN (9-20) mg/dL Creatinine (0.66-1.25) mg/dL Estimated GFR ML/MIN Glucose (74-106) mg/dL Lactic Acid (0.4-2.0) Calcium (8.4-10.2) mg/dL Magnesium (1.6-2.3) mg/dL Total Bilirubin (0.2-1.3) mg/dL AST (17-59) U/L ALT (0-50) U/L Alkaline Phosphatase (38-126) U/L Troponin I 0.018 (0.000-0.034) ng/mL NT-Pro-B Natriuret Pep (<300) pg/mL Serum Total Protein (6.3-8.2) g/dL Albumin (3.5-5.0) g/dL Urine Color Yellow (Yellow) Urine Appearance Clear (Clear) Urine pH 6.0 (4.6-8.0) Ur Specific Barre 1.025 (1.005-1.030) Urine Protein Negative (Negative) Urine Glucose (UA) Negative (Negative) mg/dL Urine Ketones Negative (Negative) Urine Blood Negative (Negative) Urine Nitrite Negative (Negative) Urine Bilirubin Negative (Negative) Urine Urobilinogen 0.2 (0.2) mg/dL Ur Leukocyte Esterase Negative (Negative) U Hyaline Cast (Auto) NONE SEEN (0-2) /LPF Urine Microscopic RBC 0-2 (0-5) /HPF Urine Microscopic WBC 0-2 (0-5) /HPF Ur Epithelial Cells None Seen (None Seen) /HPF Urine Bacteria None Seen (None Seen) /HPF Urine Culture Reflexed NO (NO) Influenza Type A Ag NEGATIVE (NEGATIVE) Influenza Type B Ag NEGATIVE (NEGATIVE) RSV (PCR) NEGATIVE (NEGATIVE) SARS-CoV-2 (PCR) POSITIVE A (NEGATIVE) Radiology Exams: Radiology Procedures Category Date Time Status CHEST 1 VIEW (PORTABLE) Stat Exams 11/26/22 16:45 Taken CHEST WITH CONTRAST [CT] Stat Exams 11/26/22 18:03 Completed Assessment/Plan (1) COVID-19 Current Visit: Yes Status: Acute Assessment & Plan: continue remdesivir, supportive care. IV dexamethasone for covid and copd exacerbation. pt agrees to po eliquis, explained risk of clotting with covid and lung ca. Code(s): U07.1 - COVID-19 (2) COPD exacerbation Current Visit: Yes Status: Acute Assessment & Plan: levaquin, steroids, nebs Code(s): J44.1 - CHRONIC OBSTRUCTIVE PULMONARY DISEASE W (ACUTE) EXACERBATION (3) Acute and chronic respiratory failure with hypoxia Current Visit: Yes Status: Acute Code(s): J96.21 - ACUTE AND CHRONIC RESPIRATORY FAILURE WITH HYPOXIA (4) Lung cancer Current Visit: Yes Status: Acute Code(s): C34.90 - MALIGNANT NEOPLASM OF UNSP PART OF UNSP BRONCHUS OR LUNG
[2022-11-27] MEDS ORDERED: VENTOLIN COMMON CANISTER IH PRN (09:54)
[2022-11-27] MEDS ORDERED: ENOXAPARIN SODIUM SQ SCH (10:00)
[2022-11-27] MEDS ORDERED: DECADRON 10MG INJ. IV SCH ×2 (10:00)
--- NOTE | 2022-11-27 10:34 | XRAY ---
Indication: Short of breath. History lung cancer. Comparison: September 25, 2022 Portable chest again demonstrates COPD without focal infiltrate, consolidation, or large effusion. Heart not enlarged again with right Port-A-Cath. Bony thorax intact again with osteopenia and mild degenerative changes. Impression: Continued nonacute chest with chronic features.
[2022-11-27] MEDS: ELIQUIS 2.5 MG TABLET PO SCH ×2 (11:11→21:54)
[2022-11-27] MEDS: Levofloxacin 500 MG Tablet PO SCH (11:11)
[2022-11-27] MEDS: Decadron 4 MG INJ IV SCH ×3 (11:19→23:08)
[2022-11-27] MEDS: DUONEB 0.5-3 MG/3 ml Neb IH SCH ×2 (13:15→19:00)
[2022-11-27] MEDS ORDERED: xanAX 0.5 MG PO PRN (18:51)
[2022-11-27] MEDS: Nicoderm CQ 21 MG TOP ONE (21:54)
[2022-11-27] MEDS: REMDESIVIR 100 MG in Sodium Chloride 0.9% 100 ML IV SCH (21:54)
[2022-11-27] MEDS: NEURONTIN PO SCH (21:54)
[2022-11-27] MEDS ORDERED: CORTISONE 1% CREAM ONE (22:26)
[2022-11-27] MEDS ORDERED: CORTISONE 1% CREAM TP PRN (22:31)
[2022-11-28] MEDS: DUONEB 0.5-3 MG/3 ml Neb IH SCH ×4 (00:05→19:00)
[2022-11-28] MEDS: Nicoderm CQ 21 MG TOP ONE (02:11)
[2022-11-28 05:11] LABS: Absolute Neutrophil Ct (ANC) 5.69 x10^3/uL (1.4-6.9); Basophil (Absolute #) 0 x10^3/uL (0-0.4); Eosinophil (Absolute #) 0 x10^3/uL (0-0.5); Hematocrit 35.6 % (42-50); Hemoglobin 11.7 g/dL (12.5-18.0); IMMATURE GRAN # 0.03 x10^3u/L (0.00-0.03); IMMATURE GRAN % 0.5 % (0.00-0.4); Lymphocyte (Absolute #) 0.42 x10^3/uL (1.0-4.6); Lymphocytes % 6.4 % (24.0-44.0); Mean Cell Volume 96.2 fL (78-100); Mean Corpuscular Hemoglobin 31.6 pg (26-32); Mean Corpuscular Hgb Concent. 32.9 g/dL (32-36); Mean Platelet Volume 9.7 fL (7.5-11.0); Monocytes % 6.1 % (0.0-12.0); Platelet Count 141 x10^3/uL (150-450); Red Cell Distribution Width 12.6 % (11.5-14.0); White Blood Count 6.5 x10^3/uL (4.0-10.5)
[2022-11-28 05:42] LABS: ALBUMIN 3.5 g/dL (3.5-5.0); ALKALINE PHOSPHATASE 70 U/L (38-126); ANION GAP 9.1 MEQ/L (5-15); BLOOD UREA NITROGEN 14 mg/dL (9-20); CHLORIDE 97 mmol/L (98-107); Calcium 8.7 mg/dL (8.4-10.2); Carbon Dioxide 31 mmol/L (22-30); Creatinine 1 0.61 mg/dL (0.66-1.25); EST GLOMERULAR FILTRATION RATE > 60.0 ML/MIN; Glucose 131 mg/dL (74-106); Potassium 4.1 mmol/L (3.5-5.1); SGOT/AST 24 U/L (17-59); SGPT/ALT 25 U/L (0-50); SODIUM 134 mmol/L (137-145); Total Protein 6.3 g/dL (6.3-8.2)
[2022-11-28 06:21] LABS: Slide Review 1 YES
[2022-11-28] MEDS: Decadron 4 MG INJ IV SCH ×3 (06:41→18:31)
[2022-11-28] MEDS ORDERED: MEDICATION INTERVENTION MC SCH (07:30)
[2022-11-28] MEDS: FLUTICASONE-SALMETEROL 250-50 IH SCH ×2 (08:01→19:00)
[2022-11-28] MEDS ORDERED: PYRIDOXINE PO SCH (10:00)
[2022-11-28] MEDS ORDERED: [UNRECOGNIZED DRUG - OTHER] PO SCH (10:00)
[2022-11-28] MEDS ORDERED: CYANOCOBALAMIN PO SCH (10:00)
--- NOTE | 2022-11-28 10:27 | PCM.NOTE ---
Date and Time: 11/28/22 1026 Subjective Assessment: patient feeling better today, currently on 3L oxygen. very anxious to go home, not coughing much and dyspnea is much improved since admission. Objective Exam General Appearance: no apparent distress Neurologic Exam: alert, oriented x 3 Respiratory Exam: diminished breath sounds, prolonged expirations, No rhonchi, No wheezing Cardiovascular Exam: regular rate/rhythm, normal heart sounds Gastrointestinal/Abdomen Exam: soft, No tenderness, No mass Extremity Exam: normal inspection, normal range of motion OBJECTIVE DATA Vital Signs: Vital Signs - 24 hr Temp Pulse Resp BP Pulse Ox 11/28/22 08:02 94 H 16 96 11/28/22 08:00 12 11/28/22 07:55 102/66 11/28/22 07:17 97.7 F 89 12 83/52 98 11/28/22 07:00 20 11/28/22 05:00 97.8 F 75 18 82/53 97 11/28/22 00:05 89 18 97 11/27/22 23:50 97.3 F 90 28 H 104/79 96 11/27/22 22:00 26 H 11/27/22 20:24 98.2 F 110 H 26 H 123/63 96 11/27/22 20:00 26 H 11/27/22 19:00 85 18 96 11/27/22 18:00 18 11/27/22 16:00 18 11/27/22 15:00 97.9 F 99 H 15 99/55 95 11/27/22 14:22 96 11/27/22 14:00 18 11/27/22 13:24 73 18 98 11/27/22 12:00 12 11/27/22 11:00 98.5 F 77 12 100/67 98 Pain Assessment - Last Documented Pain Intensity 0 Intake and Output: Intake & Output 11/25/22 11/26/22 11/27/22 11/28/22 11:59 11:59 11:59 11:59 Intake Total 360 360 Output Total 875 Balance 360 -515 Weight 63.1 kg Lab Results: Lab Results-Last 24 Hours 11/28/22 11/28/22 11/28/22 Range/Units 05:13 05:13 05:13 WBC 6.5 (4.0-10.5) x10^3/uL RBC 3.70 L (4.1-5.6) x10^6/uL Hgb 11.7 L (12.5-18.0) g/dL Hct 35.6 L (42-50) % MCV 96.2 (78-100) fL MCH 31.6 (26-32) pg MCHC 32.9 (32-36) g/dL RDW 12.6 (11.5-14.0) % Plt Count 141 L (150-450) x10^3/uL MPV 9.7 (7.5-11.0) fL Gran % 87.0 H (36.0-66.0) % Immature Gran % (Auto) 0.5 H (0.00-0.4) % Nucleat RBC Rel Count 0.0 (0.00-0.1) % Eos # (Auto) 0 (0-0.5) x10^3/uL Immature Gran # (Auto) 0.03 (0.00-0.03) x10^3u/L Absolute Lymphs (auto) 0.42 L (1.0-4.6) x10^3/uL Absolute Monos (auto) 0.40 (0.0-1.3) x10^3/uL Absolute Nucleated RBC 0.00 (0.00-0.01) x10^3u/L Lymphocytes % 6.4 L (24.0-44.0) % Monocytes % 6.1 (0.0-12.0) % Eosinophils % 0.0 (0.00-5.0) % Basophils % 0.0 (0.0-0.4) % Absolute Granulocytes 5.69 (1.4-6.9) x10^3/uL Basophils # 0 (0-0.4) x10^3/uL D-Dimer 1.08 H* (0.0-0.50) mg/L Sodium 134 L (137-145) mmol/L Potassium 4.1 (3.5-5.1) mmol/L Chloride 97 L (98-107) mmol/L Carbon Dioxide 31 H (22-30) mmol/L Anion Gap 9.1 (5-15) MEQ/L BUN 14 (9-20) mg/dL Creatinine 0.61 L (0.66-1.25) mg/dL Estimated GFR > 60.0 ML/MIN Glucose 131 H (74-106) mg/dL Calcium 8.7 (8.4-10.2) mg/dL Magnesium 2.0 (1.6-2.3) mg/dL Total Bilirubin 0.30 (0.2-1.3) mg/dL AST 24 (17-59) U/L ALT 25 (0-50) U/L Alkaline Phosphatase 70 (38-126) U/L Serum Total Protein 6.3 (6.3-8.2) g/dL Albumin 3.5 (3.5-5.0) g/dL Slides for Path Review YES Radiology Exams: Radiology Procedures Category Date Time Status CHEST 1 VIEW (PORTABLE) Stat Exams 11/26/22 16:45 Completed CHEST WITH CONTRAST [CT] Stat Exams 11/26/22 18:03 Completed Assessment/Plan (1) COVID-19 Current Visit: Yes Status: Acute Assessment & Plan: continue remdesivir, decadron and eliquis. improving rapidly, seems to be more copd exacerbation on exam and clinically and improved rapidly. possible discharge tomorrow Code(s): U07.1 - COVID-19 (2) COPD exacerbation Current Visit: Yes Status: Acute Code(s): J44.1 - CHRONIC OBSTRUCTIVE PULMONARY DISEASE W (ACUTE) EXACERBATION (3) Acute and chronic respiratory failure with hypoxia Current Visit: Yes Status: Acute Code(s): J96.21 - ACUTE AND CHRONIC RESPIRATORY FAILURE WITH HYPOXIA (4) Lung cancer Current Visit: Yes Status: Acute Code(s): C34.90 - MALIGNANT NEOPLASM OF UNSP PART OF UNSP BRONCHUS OR LUNG
[2022-11-28] MEDS: ELIQUIS 2.5 MG TABLET PO SCH ×2 (10:44→22:08)
[2022-11-28] MEDS: SYNTHROID 100 MCG PO SCH (10:45)
[2022-11-28] MEDS: Pepcid 20 MG PO SCH ×2 (10:45→22:08)
[2022-11-28] MEDS: Protonix 40MG Tablet PO SCH (10:45)
[2022-11-28] MEDS: Levofloxacin 500 MG Tablet PO SCH (10:45)
[2022-11-28] MEDS: THERAGRAN MULTIVITAMIN PO SCH (10:46)
[2022-11-28] MEDS: NEURONTIN PO SCH ×2 (10:46→22:07)
[2022-11-28] MEDS ORDERED: TYLENOL 325 MG PO PRN (15:34)
[2022-11-28] MEDS: Nicoderm CQ 21 MG TOP SCH (18:28)
[2022-11-28] MEDS: REMDESIVIR 100 MG in Sodium Chloride 0.9% 100 ML IV SCH (22:07)
[2022-11-29] MEDS: Decadron 4 MG INJ IV SCH ×3 (00:21→11:32)
[2022-11-29] MEDS: DUONEB 0.5-3 MG/3 ml Neb IH SCH ×3 (01:26→13:36)
[2022-11-29] MEDS: SYNTHROID 100 MCG PO SCH (07:28)
[2022-11-29] MEDS: FLUTICASONE-SALMETEROL 250-50 IH SCH (07:30)
[2022-11-29] MEDS: ELIQUIS 2.5 MG TABLET PO SCH (08:27)
--- NOTE | 2022-11-29 09:12 | PCM.DS ---
Discharge Summary Date of Admission: 11/26/22 22:38 Admitting Physician: RUTH ANSARI MD Primary Care Provider: GLADISALON YOVANY Allergies Allergies venom-wasp [wasp venom] Allergy (Verified 11/26/22 16:43) Hospital Summary - Hospital Course Hospital Course: patient admitted with copd exacerbation and covid positive, he is on oxygen at home but uses intermittently. he seems to be at his baseline with IV steroids, abx and nebs in addition to remdesivir - Vitals & Intake/Output Vital Signs: Vital Signs Temperature 98.0 F 11/29/22 07:10 Pulse Rate 76 11/29/22 07:30 Respiratory Rate 18 11/29/22 08:32 Blood Pressure 98/69 11/29/22 07:10 O2 Sat by Pulse Oximetry 94 L 11/29/22 07:30 Intake & Output: Intake & Output 11/26/22 11/27/22 11/28/22 11/29/22 11:59 11:59 11:59 11:59 Intake Total 614 053 5768 Output Total 875 250 Balance 360 -515 970 Weight 63.1 kg - Lab Result Diagrams: 11/28/22 05:13 11/28/22 05:13 Lab Results-Last 24 Hrs: Lab Results-Last 24 Hours 11/29/22 Range/Units 04:47 D-Dimer 1.05 H* (0.0-0.50) mg/L - Procedures and Test Procedures and Tests throughout Hospitalization: Therapy Orders & Screens 11/26/22 17:16 Respiratory Therapy Assessment DAILY Comment: 11/26/22 21:18 Respiratory MDI ONCE Comment: ALBUTEROL 4 PUFFS Diagnosis: SOB 11/26/22 23:20 Oxygen Nasal Cannula 4 lpm Comment: Diagnosis: COVID 11/27/22 00:46 PT Eval & Treat (MD Order) ONCE Reason for Eval:: hypoxia with ambulate. Please reassess Diagnosis: COVID Respiratory Therapy Consult ROUTINE Comment: Reason For Exam: Diagnosis: COVID 11/27/22 07:00 Respiratory MDI BID Comment: ADVAIR/WIXELLA 250/50 1 PUFF BID Diagnosis: COVID Discharge Exam General Appearance: no apparent distress Neurologic Exam: alert, oriented x 3 Respiratory Exam: diminished breath sounds, prolonged expirations Cardiovascular Exam: regular rate/rhythm, normal heart sounds Gastrointestinal/Abdomen Exam: soft, No tenderness, No mass Extremity Exam: normal inspection, normal range of motion Skin Exam: normal color, warm, dry Final Diagnosis/Problem List - Final Discharge Diagnosis/Problem (1) COVID-19 Current Visit: Yes Status: Acute Assessment & Plan: stable at this time, appears to be at his baseline. insistent to go home, will send on anticoagulant x 30 days and treat for copd exacerbation Code(s): U07.1 - COVID-19 (2) COPD exacerbation Current Visit: Yes Status: Acute Code(s): J44.1 - CHRONIC OBSTRUCTIVE PULMONARY DISEASE W (ACUTE) EXACERBATION (3) Acute and chronic respiratory failure with hypoxia Current Visit: Yes Status: Acute Code(s): J96.21 - ACUTE AND CHRONIC RESPIRATORY FAILURE WITH HYPOXIA (4) Lung cancer Current Visit: Yes Status: Acute Code(s): C34.90 - MALIGNANT NEOPLASM OF UNSP PART OF UNSP BRONCHUS OR LUNG - Discharge Disposition: Home, Self-Care Condition: Good Prescriptions: New Prednisone 20 mg [Deltasone 20 mg] 20 mg PO UD #18 tablet Prednisone 5 mg [Deltasone 5 mg] 5 mg PO DAILY #30 tablet Levofloxacin [Levofloxacin 500 MG Tablet] 500 mg PO DAILY #5 tablet Rivaroxaban 10 mg Tablet [Xarelto 10 mg Tablet] 10 mg PO DAILY #30 tablet Continue Ipratropium/Albuterol Sulfate [Combivent Inhaler] 2 puff IH DAILY Albuterol Sulfate 2.5 mg IH QID Budesonide/Glycopyr/Formoterol [Breztri Aerosphere Inhaler] 2 puffs IH BID Levothyroxine Sodium 100 mcg PO DAILY Gabapentin [Neurontin ] 600 mg PO BID predniSONE [Prednisone] 15 mg PO DAILY Multivit-Mins/Iron/Folic/Lycop [Centrum Men's Tablet] 1 tab PO DAILY Nicotine 21 mg [Nicoderm CQ 21 MG] 21 mg TOP DAILY B12/Methyltetrahydrofolate/B6 [Methyl T34-Hlgcft Folate-P5p] 1 each PO DAILY Albuterol Sulfate [Albuterol Sulfate Hfa] 2 puffs IH Q6H PRN #2 units PRN Reason: Shortness Of Breath Follow up with: ALON GRIFFITH MD [Primary Care Provider] - 2 weeks
[2022-11-29] MEDS: Pepcid 20 MG PO SCH (10:12)
[2022-11-29] MEDS: NEURONTIN PO SCH (10:12)
[2022-11-29] MEDS: Protonix 40MG Tablet PO SCH (10:12)
[2022-11-29] MEDS: Nicoderm CQ 21 MG TOP SCH (10:12)
[2022-11-29] MEDS: THERAGRAN MULTIVITAMIN PO SCH (10:13)
[2022-11-29] MEDS: Levofloxacin 500 MG Tablet PO SCH (10:13)
[2022-11-29 11:55] VITALS: BP 106/60
[2022-11-29 13:37] VITALS: PULSE 70; O2SAT 99
== END 2022-11-29 15:55 | disposition home or self-care (01) ==
LOC: ED 16:42 → INTOOBSV 22:38 → OBSVTOIN 22:38 → MED SURG 22:38
PROVIDERS: ADMIT Internal Medicine; ATTEND Family Medicine
DX: U07.1 COVID-19 (principal); J44.1 Chronic obstructive pulmonary disease with (acute) exacerbation; J96.21 Acute and chronic respiratory failure with hypoxia; C34.90 Malignant neoplasm of unspecified part of unspecified bronchus or lung; Z79.899 Other long term (current) drug therapy; Z20.828 Contact with and (suspected) exposure to other viral communicable diseases; Z72.0 Tobacco use; Z99.81 Dependence on supplemental oxygen
CPT/HCPCS: 0241U; 36000; 36415; 71045; 71260; 80053; 81001; 83605; 83735; 83880; 84484; 85025; 85379; 85610; 93005; 94640; 94762; 96374; 97161; 97530; 99285; 93268; J0248; J1100; J1642; J2930; J3475; A9270-GY; G0378

== ENCOUNTER 2023-01-10 08:55 | Emergency (ER) | payer MEDICARE ==
[2023-01-10 09:48] LABS: Absolute Neutrophil Ct (ANC) 6.35 x10^3/uL (1.4-6.9); BASOPHIL % 0.3 % (0.0-0.4); Basophil (Absolute #) 0.03 x10^3/uL (0-0.4); Eosinophil % 1.1 % (0.00-5.0); Hematocrit 34.8 % (42-50); Hemoglobin 11.1 g/dL (12.5-18.0); IMMATURE GRAN # 0.06 x10^3u/L (0.00-0.03); IMMATURE GRAN % 0.7 % (0.00-0.4); Lymphocyte (Absolute #) 1.57 x10^3/uL (1.0-4.6); Lymphocytes % 17.3 % (24.0-44.0); Mean Cell Volume 98.9 fL (78-100); Mean Corpuscular Hemoglobin 31.5 pg (26-32); Mean Corpuscular Hgb Concent. 31.9 g/dL (32-36); Mean Platelet Volume 9.4 fL (7.5-11.0); Monocyte (Absolute #) 0.97 x10^3/uL (0.0-1.3); Monocytes % 10.7 % (0.0-12.0); Neutrophil % 69.9 % (36.0-66.0); Platelet Count 217 x10^3/uL (150-450); Red Blood Count 3.52 x10^6/uL (4.1-5.6); Red Cell Distribution Width 13.4 % (11.5-14.0); White Blood Count 9.1 x10^3/uL (4.0-10.5)
[2023-01-10 10:06] LABS: ALBUMIN 3.4 g/dL (3.5-5.0); ALKALINE PHOSPHATASE 66 U/L (38-126); ANION GAP 10.9 MEQ/L (5-15); BLOOD UREA NITROGEN 15 mg/dL (9-20); CHLORIDE 101 mmol/L (98-107); Calcium 8.7 mg/dL (8.4-10.2); Carbon Dioxide 31 mmol/L (22-30); Creatinine 1 0.66 mg/dL (0.66-1.25); EST GLOMERULAR FILTRATION RATE > 60.0 ML/MIN; Glucose 99 mg/dL (74-106); Potassium 3.5 mmol/L (3.5-5.1); SGOT/AST 24 U/L (17-59); SGPT/ALT 29 U/L (0-50); SODIUM 139 mmol/L (137-145); Total Protein 6.4 g/dL (6.3-8.2)
[2023-01-10 10:39] LABS: Appearance Clear (Clear); Bilirubin Negative (Negative); Blood Trace (Negative); Glucose, Urine Negative (Negative); Ketones Negative (Negative); Leukocyte Esterase Negative (Negative); Nitrite Negative (Negative); Protein,Urine Dip Negative (Negative); Specific Gravity >=1.030 (1.005-1.030)
[2023-01-10] MEDS ORDERED: BABY ASPIRIN 81 MG CHEW PO ONE (10:47)
--- NOTE | 2023-01-10 10:48 | ERPHSYRPT ---
- History of Present Illness Time Seen by Provider: 01/10/23 10:45 Historian: patient Exam Limitations: no limitations Patient Subjective Stated Complaint: pt here for chest pain to epigastric area started 30 mins before arrival, no sob, no cough, Triage Nursing Assessment: pt alert, walked in, resp easy, skin w/d/p, no edema noted, no cough, holding chest at times Physician History: Patient is a 62-year-old male with a history of metastatic lung cancer presents to our ED for evaluation of chest pain. Chest pain started approximately 30 minutes prior to arrival. Patient was at home sitting down when symptoms occu rred. No associated nausea vomiting or diaphoresis. Symptoms were constant up until arrival to our ED when symptoms began to subside. Patient denies a history of the same. When present symptoms are moderate in intensity. No specific worsening improving factors. No trauma. No fever. Patient currently feels well. He voices no other complaints or concerns at this time. Portions of this note were created with voice recognition technology. There may be grammatical, spelling, punctuation or sound alike errors Timing/Duration: today Activities at Onset: none Quality: aching Location: substernal Chest Pain Radiation: no radiation (Patient states the pain was substernal but radiated across both sides of his chest.) Severity of Pain-Max: moderate Severity of Pain-Current: mild Modifying Factors: Improves With: nothing Associated Symptoms: denies symptoms Prior Chest Pain/Cardiac Workup: no prior chest pain Nitro Today/Relief: no nitro taken today Aspirin Treatment Today: no aspirin today Allergies/Adverse Reactions: venom-wasp [wasp venom] Allergy (Verified 01/10/23 09:06) Home Medications: Gabapentin [Neurontin ] 1,300 mg PO QID 09/25/22 [History] Levothyroxine Sodium 100 mcg PO DAILY 09/25/22 [History] Multivit-Mins/Iron/Folic/Lycop [Centrum Men's Tablet] 1 tab PO DAILY 11/26/22 [History] B12/Methyltetrahydrofolate/B6 [Methyl I18-Xkitac Folate-P5p] 1 each PO DAILY 11/27/22 [History] Nicotine 21 mg [Nicoderm CQ 21 MG] 21 mg TOP DAILY 11/27/22 [History] Prednisone 20 mg [Deltasone 20 mg] 15 mg PO UD 12/20/22 [History] Pyridoxine HCl (Vitamin B6) [Vitamin B-6] 50 mg PO DAILY 12/20/22 [History] Albuterol 8 gm Mdi Hfa [Ventolin Hfa MDI] 2 puffs QID 01/10/23 [History] Budesonide/Glycopyr/Formoterol [Breztri Aerosphere Inhaler] 1 puff DAILY 01/10/23 [History] Fluconazole 100 mg [Diflucan 100 MG] 100 mg PO DAILY 01/10/23 [History] Hx Tetanus, Diphtheria Vaccination/Date Given: No Hx Influenza Vaccination/Date Given: No Hx Pneumococcal Vaccination/Date Given: No Immunizations Up to Date: Yes Travel Risk - International Travel Have you traveled outside of the country in past 3 weeks: No - Coronavirus Screening Are you exhibiting any of the following symptoms?: No Close contact with a COVID-19 positive Pt in past 14-21 Days: No - Vaccine Status Have you recieved a Covid-19 vaccination: No - Review of Systems Constitutional: No Symptoms, No Fever, No Chills Eyes: No Symptoms Ears, Nose, & Throat: No Symptoms Respiratory: No Symptoms, No Cough, No Dyspnea Cardiac: No Symptoms, No Chest Pain, No Edema, No Syncope Abdominal/Gastrointestinal: No Symptoms, No Abdominal Pain, No Nausea, No Vomiting, No Diarrhea Genitourinary Symptoms: No Symptoms, No Dysuria Musculoskeletal: No Symptoms, No Back Pain, No Neck Pain Skin: No Symptoms, No Rash Neurological: No Symptoms, No Dizziness, No Focal Weakness, No Sensory Changes Psychological: No Symptoms Endocrine: No Symptoms Hematologic/Lymphatic: No Symptoms Immunological/Allergic: No Symptoms All Other Systems: Reviewed and Negative - Past Medical History Pertinent Past Medical History: Yes Neurological History: No Pertinent History ENT History: No Pertinent History Cardiac History: No Pertinent History Respiratory History: COPD, Emphysema, Lung Cancer Endocrine Medical History: Hypothyroidism Musculoskeletal History: No Pertinent History GI Medical History: No Pertinent History History: No Pertinent History Psycho-Social History: No Pertinent History Male Reproductive Disorders: No Pertinent History Other Medical History: BRAIN ca, lung ca, adrenal gland ca. - Past Surgical History Past Surgical History: Yes Neuro Surgical History: Other Cardiac: No Pertinent History Respiratory: No Pertinent History Gastrointestinal: No Pertinent History Genitourinary: No Pertinent History Musculoskeletal: No Pertinent History Male Surgical History: No Pertinent History Other Surgical History: PORT PLACEMENT; BRAIN SURGERY FOR BRAIN TUMOR 02/10/2020 - Social History Smoking Status: Current every day smoker How long have you smoked: 40+ YEARS Exposure to second hand smoke: Yes Drug Use: none Patient Lives Alone: No - Nursing Vital Signs Nursing Vital Signs: Initial Vital Signs O2 Sat by Pulse Oximetry 95 01/10/23 08:56 Pain Scale Pain Intensity 0 - Physical Exam General Appearance: no apparent distress, alert Eye Exam: PERRL/EOMI, eyes nml inspection Ears, Nose, Throat Exam: normal ENT inspection, TMs normal, pharynx normal, moist mucous membranes Neck Exam: normal inspection, non-tender, supple, full range of motion Respiratory Exam: normal breath sounds, lungs clear, airway intact, No respiratory distress Cardiovascular Exam: regular rate/rhythm, normal heart sounds, normal peripheral pulses Gastrointestinal/Abdomen Exam: soft, No tenderness, No mass Back Exam: normal inspection, No CVA tenderness, No vertebral tenderness Extremity Exam: normal inspection, normal range of motion Neurologic Exam: alert, oriented x 3, cooperative, normal mood/affect, sensation nml, No motor deficits Skin Exam: normal color, warm, dry Lymphatic Exam: No adenopathy SpO2 Interpretation: normal SpO2: 94 O2 Delivery: Room Air - Course Nursing assessment & vital signs reviewed: Yes EKG Interpreted by Me: RATE (74), Sinus Rhythm, NORMAL AXIS, NORMAL INTERVALS - Radiology Exams Chest X-ray Interpretation: Teleradiologist Report (Subtle airspace opacification in both lower lung zones possibly infective etiology. Central venous line noted at its appropriate location. Mild blunting of the left costophrenic angle possible pleural thickening or mild effusion) - CT Exams Chest CT Interpretation: Tele-radiologist Report (Bilateral airspace opacification, emphysema, calcified lung nodule, right lung apex calcified lung nodule left lower lobe of lung. Right adrenal gland nodule, no PE) Ordered Tests: Active Orders 24 hr Category Date Time Status Combination Welder Apprentice STAT Care 01/10/23 09:22 Active EKG-ER Only STAT Care 01/10/23 09:21 Active IV Insertion STAT Care 01/10/23 09:21 Active Pulse Oximetry (ED) STAT Care 01/10/23 09:21 Active CHEST 1 VIEW (PORTABLE) Stat Exams 01/10/23 09:22 Completed CHEST WITH CONTRAST [CT] Stat Exams 01/10/23 10:41 Completed CBC W DIFF Stat Lab 01/10/23 09:47 Completed CMP Stat Lab 01/10/23 09:47 Completed CULTURE,URINE Stat Lab 01/10/23 10:31 Received D-DIMER QUANTITATIVE Stat Lab 01/10/23 09:47 Completed TROPONIN Q4H Lab 01/10/23 09:47 Completed TROPONIN Q4H Lab 01/10/23 13:30 Completed TROPONIN Q4H Lab 01/10/23 17:30 Ordered UA W/RFX UR CULTURE Stat Lab 01/10/23 10:31 Completed Medication Summary Generic Name Dose Route Start Last Admin Trade Name Freq PRN Reason Stop Dose Admin Ciprofloxacin 500 mg 01/10/23 22:00 01/10/23 14:21 Ciprofloxacin 500 Mg Tablet PO 02/09/23 21:59 500 mg BID EN Administration Discontinued Medications Generic Name Dose Route Start Last Admin Trade Name Freq PRN Reason Stop Dose Admin Aspirin 324 mg 01/10/23 10:47 01/10/23 11:00 Aspirin 81 Mg Tab.Chew PO 01/10/23 10:48 324 mg STAT ONE Administration Lab/Rad Data: Laboratory Result Diagrams 01/10/23 09:47 01/10/23 09:47 Laboratory Results 01/10/23 01/10/23 01/10/23 Range/Units 13:30 10:31 09:47 WBC (4.0-10.5) x10^3/uL RBC (4.1-5.6) x10^6/uL Hgb (12.5-18.0) g/dL Hct (42-50) % MCV (78-100) fL MCH (26-32) pg MCHC (32-36) g/dL RDW (11.5-14.0) % Plt Count (150-450) x10^3/uL MPV (7.5-11.0) fL Gran % (36.0-66.0) % Immature Gran % (Auto) (0.00-0.4) % Nucleat RBC Rel Count (0.00-0.1) % Eos # (Auto) (0-0.5) x10^3/uL Immature Gran # (Auto) (0.00-0.03) x10^3u/L Absolute Lymphs (auto) (1.0-4.6) x10^3/uL Absolute Monos (auto) (0.0-1.3) x10^3/uL Absolute Nucleated RBC (0.00-0.01) x10^3u/L Lymphocytes % (24.0-44.0) % Monocytes % (0.0-12.0) % Eosinophils % (0.00-5.0) % Basophils % (0.0-0.4) % Absolute Granulocytes (1.4-6.9) x10^3/uL Basophils # (0-0.4) x10^3/uL D-Dimer (0.0-0.50) mg/L Sodium (137-145) mmol/L Potassium (3.5-5.1) mmol/L Chloride (98-107) mmol/L Carbon Dioxide (22-30) mmol/L Anion Gap (5-15) MEQ/L BUN (9-20) mg/dL Creatinine (0.66-1.25) mg/dL Estimated GFR ML/MIN Glucose (74-106) mg/dL Calcium (8.4-10.2) mg/dL Total Bilirubin (0.2-1.3) mg/dL AST (17-59) U/L ALT (0-50) U/L Alkaline Phosphatase (38-126) U/L Troponin I < 0.012 < 0.012 (0.000-0.034) ng/mL Serum Total Protein (6.3-8.2) g/dL Albumin (3.5-5.0) g/dL Urine Color Dark Yellow (Yellow) Urine Appearance Clear (Clear) Urine pH 5.0 (4.6-8.0) Ur Specific Sheldon >=1.030 A (1.005-1.030) Urine Protein Negative (Negative) Urine Glucose (UA) Negative (Negative) mg/dL Urine Ketones Negative (Negative) Urine Blood Trace (Negative) Urine Nitrite Negative (Negative) Urine Bilirubin Negative (Negative) Urine Urobilinogen 1.0 A (0.2) mg/dL Ur Leukocyte Esterase Negative (Negative) U Hyaline Cast (Auto) 6-10 A (0-2) /LPF Urine Microscopic RBC 3-5 (0-5) /HPF Urine Microscopic WBC 11-20 A (0-5) /HPF Ur Epithelial Cells None Seen (None Seen) /HPF Urine Bacteria None Seen (None Seen) /HPF Urine Culture Reflexed YES (NO) 01/10/23 01/10/23 01/10/23 Range/Units 09:47 09:47 09:47 WBC 9.1 (4.0-10.5) x10^3/uL RBC 3.52 L (4.1-5.6) x10^6/uL Hgb 11.1 L (12.5-18.0) g/dL Hct 34.8 L (42-50) % MCV 98.9 (78-100) fL MCH 31.5 (26-32) pg MCHC 31.9 L (32-36) g/dL RDW 13.4 (11.5-14.0) % Plt Count 217 (150-450) x10^3/uL MPV 9.4 (7.5-11.0) fL Gran % 69.9 H (36.0-66.0) % Immature Gran % (Auto) 0.7 H (0.00-0.4) % Nucleat RBC Rel Count 0.0 (0.00-0.1) % Eos # (Auto) 0.10 (0-0.5) x10^3/uL Immature Gran # (Auto) 0.06 H (0.00-0.03) x10^3u/L Absolute Lymphs (auto) 1.57 (1.0-4.6) x10^3/uL Absolute Monos (auto) 0.97 (0.0-1.3) x10^3/uL Absolute Nucleated RBC 0.00 (0.00-0.01) x10^3u/L Lymphocytes % 17.3 L (24.0-44.0) % Monocytes % 10.7 (0.0-12.0) % Eosinophils % 1.1 (0.00-5.0) % Basophils % 0.3 (0.0-0.4) % Absolute Granulocytes 6.35 (1.4-6.9) x10^3/uL Basophils # 0.03 (0-0.4) x10^3/uL D-Dimer 1.56 H* (0.0-0.50) mg/L Sodium 139 (137-145) mmol/L Potassium 3.5 (3.5-5.1) mmol/L Chloride 101 (98-107) mmol/L Carbon Dioxide 31 H (22-30) mmol/L Anion Gap 10.9 (5-15) MEQ/L BUN 15 (9-20) mg/dL Creatinine 0.66 (0.66-1.25) mg/dL Estimated GFR > 60.0 ML/MIN Glucose 99 (74-106) mg/dL Calcium 8.7 (8.4-10.2) mg/dL Total Bilirubin 0.30 (0.2-1.3) mg/dL AST 24 (17-59) U/L ALT 29 (0-50) U/L Alkaline Phosphatase 66 (38-126) U/L Troponin I (0.000-0.034) ng/mL Serum Total Protein 6.4 (6.3-8.2) g/dL Albumin 3.4 L (3.5-5.0) g/dL Urine Color (Yellow) Urine Appearance (Clear) Urine pH (4.6-8.0) Ur Specific Sheldon (1.005-1.030) Urine Protein (Negative) Urine Glucose (UA) (Negative) mg/dL Urine Ketones (Negative) Urine Blood (Negative) Urine Nitrite (Negative) Urine Bilirubin (Negative) Urine Urobilinogen (0.2) mg/dL Ur Leukocyte Esterase (Negative) U Hyaline Cast (Auto) (0-2) /LPF Urine Microscopic RBC (0-5) /HPF Urine Microscopic WBC (0-5) /HPF Ur Epithelial Cells (None Seen) /HPF Urine Bacteria (None Seen) /HPF Urine Culture Reflexed (NO) - Progress Progress: improved Air Movement: good Progress Note: Patient reassessed. He feels well. Patient asymptomatic. Workable. Chest x- ray CT scan ordered. CT reveals lung nodules adrenal gland nodule. Patient received a CD of his CT scan to share with his oncologist. CBC CMP essentially unremarkable. D-dimer positive. CTA chest completed. Troponin negative x2. Urinalysis reveals urinary tract infection. Patient received aspirin in our ED. An oral dose of Cipro was also provided for the urinary tract infection. A prescription for Cipro be forwarded to patient's pharmacy. Patient voices no other complaints or concerns at this time. Portions of this note were created with voice recognition technology. There may be grammatical, spelling, punctuation or sound alike errors 01/10/23 14:46 Complexity of problem addressed is moderate acute, new diagnosis with uncertain prognosis. It is unclear of the lung nodules observed is stable or worsening from previous. No comparisons made by radiologist No critical care time. Complexity of data reviewed and analyzed was moderate. Test ordered. Test reviewed and analyzed by Dr. Tapia including EKG and urinalysis. Risk of complication and or risk morbidity/mortality of patient management is moderate. A prescription for ciprofloxacin was forwarded to patient's pharmacy. Patient agrees to follow-up with his primary care doctor and his oncologist within 48 hours for evaluation. Portions of this note were created with voice recognition technology. There may be grammatical, spelling, punctuation or sound alike errors Heart score 3 01/10/23 14:47 01/10/23 14:50 Blood Culture(s) Obtained: No Antibiotics given: No Counseled pt/family regarding: lab results, diagnosis, need for follow-up, rad results - Departure Departure Disposition: Home Clinical Impression: UTI (urinary tract infection), Chest pain, Adrenal gland nodule, Lung nodules Condition: Stable Critical Care Time: No Referrals: ALON GRIFFITH MD [Primary Care Provider] - Follow up/PCP as directed Prescriptions: Ciprofloxacin [Cipro 500 MG] 500 mg PO BID #14 tablet
[2023-01-10 10:59] LABS: Bacteria None Seen /HPF (None Seen); Epithelial Cells None Seen /HPF (None Seen)
[2023-01-10 11:00] LABS: ADD URINE CULTURE? YES (NO)
[2023-01-10 14:18] VITALS: O2SAT 94
[2023-01-10] MEDS ORDERED: Cipro 500 MG ONE (14:19)
--- NOTE | 2023-01-10 14:22 | XRAY ---
CLINICAL HISTORY:Chest pain COMPARISON:None. TECHNIQUES:X-ray chest AP upright view. FINDINGS: IMPRESSION: Electronically Signed by: Taye Georges MD. (01/10/2023 09:41:38 MECHANICS SUPERVISOR)
--- NOTE | 2023-01-10 14:34 | XRAY ---
CLINICAL HISTORY:pain, PE? COMPARISON:X-ray chest was done on the same date, a few hours ago. TECHNIQUES:CT of the chest and angiography of the pulmonary artery and its branches were done with images reconstructed in mediastinal and lung windows; FINDINGS: CT Pulmonary angiography:. The pulmonary trunk and both the main pulmonary arteries are normal.. No evidence of any filling defects involving the main/segmental pulmonary arteries till the periphery. Lungs:. Diffuse renee acinar emphysematous changes are seen in both lungs. Fibrotic opacities with surrounding interlobular septal thickening is seen in the lateral segment of the right middle and anterior basal segment of the left lower lung lobes. A calcified nodule is seen in the right lung apex measuring 5 mm. Another calcified nodule is seen in the posterior basal segment of the left lower lung lobe measuring 7.3 mm. Minimal bilateral pleural thickening is seen. Central venous line is located with its tip seen at normal position. Trachea and esophagus are normal. Honey, main bronchi and lou on both sides appear normal. Mediastinum appears normal. Heart and major vessels appear normal. Visualized section of the abdomen shows a calcified nodule in the right adrenal measuring 6.1 x 5.5 mm in size. IMPRESSION: Negative study for pulmonary thromboembolism. Diffuse panacinar emphysematous changes in both lungs. Fibrotic opacities and lobular septal thickening in the right middle and left lower lung lobes. Calcified nodules in the right lung apex and left lower lung. Minimal bilateral pleural thickening in both lung bases. No acute lung pathology is noted. Electronically Signed by: Taye Georges MD. 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
[2023-01-10 14:46] VITALS: BP 106/75; PULSE 72
[2023-01-10] MEDS ORDERED: Cipro 500 MG PO SCH (22:00)
== END 2023-01-10 15:01 | disposition home or self-care (01) ==
LOC: ED 08:55
DX: R91.8 Other nonspecific abnormal finding of lung field (principal); E27.8 Other specified disorders of adrenal gland; R07.9 Chest pain, unspecified; N39.0 Urinary tract infection, site not specified; Z85.118 Personal history of other malignant neoplasm of bronchus and lung; Z79.52 Long term (current) use of systemic steroids; Z79.899 Other long term (current) drug therapy; Z72.0 Tobacco use
CPT/HCPCS: 36000; 36415; 71045; 71260; 80053; 81001; 84484; 85025; 85379; 87086; 93005; 93041; 94760; 99284; J1642; A9270-GY